=== PATIENT | female | born 1985 | race Caucasian/White ===

== ENCOUNTER 2021-11-06 07:52 | Outpatient (CLI) | payer OTHER, SELFPAY ==
--- NOTE | 2021-11-06 08:15 | CRLHL7_ITS ---
For Patients: As a result of the Cures Act, medical imaging exams and procedure reports are released immediately into your electronic medical record. You may view this report before your referring provider. If you have questions, please contact your health care provider. INDICATION: First trimester scan, establish dates. COMPARISON: None. TECHNIQUE: Real-time weber-scale imaging of the pelvis was performed. FINDINGS: Sonographic imaging demonstrates a single living intrauterine gestation. The embryo demonstrates a regular cardiac rate measuring 179 beats per minute. The embryo`s crown-rump length measurement of 2.7 cm corresponds to a gestational age of 9 weeks 3 days with a sonographic due date of 06/08/2022. There is a normal-appearing yolk sac. There are no gross abnormalities noted within the embryo at this early state of development. The gestational sac has a normal appearance. There is a 0.6 x 1.1 x 0.4 cm perigestational hemorrhage. The amount of fluid within the sac appears appropriate for gestational age. The cervix is closed. Anterior intramural fibroid measuring 1.5 x 1.1 x 1.4 cm. The left ovary is normal. The right ovary is not visualized. There are no suspicious fluid collections noted in the cul-de-sac. IMPRESSION: Single living intrauterine with sonographic gestational age 9 weeks 3 days and sonographic due date of 06/08/2022. Small left-sided subchorionic hemorrhage measuring 6 x 11 x 4 millimeters. Dictated by Gilson Arriola MD @ 11/06/2021 8:43:51 AM (Electronically Signed)
== END 2021-11-06 07:53 | disposition home or self-care (01) ==
LOC: US 07:55
PROVIDERS: Visit Provider Registered Nurse
DX: Z34.91 Encounter for supervision of normal pregnancy, unspecified, first trimester (principal); O20.9 Hemorrhage in early pregnancy, unspecified; Z3A.09 9 weeks gestation of pregnancy
CPT/HCPCS: 76817

== ENCOUNTER 2021-11-06 10:06 | Outpatient (CLI) | payer OTHER, SELFPAY ==
[2021-11-06 12:17] LABS: Alanine Aminotransferase* 23 U/L (4-35); Aspartate Amino Transferase* 40 U/L (12-35); Blood Urea Nitrogen* 10 mg/dL (5-24); Creatinine* 0.7 mg/dL (0.5-1.5); Estimated Glomerular Filt Rate 113 ml/min
[2021-11-06 12:41] LABS: Hepatitis B Surface Antigen* Negative (Negative)
[2021-11-06 12:46] LABS: Total Protein Urine < 5 mg/dL
[2021-11-06 12:50] LABS: Creatinine Urine 153.1 mg/dL; HIV 1/2/P24 Combo Screen* Negative (Negative)
[2021-11-06 12:58] LABS: Hepatitis C Virus Antibody* Negative (Negative)
[2021-11-07 17:34] LABS: Rubella Antibody IgG 9.9 IU/mL
[2021-11-08 00:37] LABS: Rapid Plasma Reagin (RPR) Non Reactive (Non Reactive)
== END 2021-11-06 10:07 | disposition home or self-care (01) ==
PROVIDERS: Visit Provider Registered Nurse
DX: O09.521 Supervision of elderly multigravida, first trimester (principal); Z3A.09 9 weeks gestation of pregnancy
CPT/HCPCS: 82565; 82570; 84156; 84450; 84460; 84520; 86592; 86703; 86762; 86803; 86850; 86900; 86901; 87086; 87186; 87340; 87491; 87591

== ENCOUNTER 2021-11-29 15:01 | Outpatient (CLI) | payer OTHER, SELFPAY ==
[2021-11-29 17:12] LABS: Aspartate Amino Transferase* 26 U/L (12-35)
== END 2021-11-29 15:02 | disposition home or self-care (01) ==
PROVIDERS: Visit Provider Advanced Practice Midwife
DX: O09.521 Supervision of elderly multigravida, first trimester (principal); Z3A.12 12 weeks gestation of pregnancy
CPT/HCPCS: 84450; 87086

== ENCOUNTER 2022-01-22 14:16 | Outpatient (CLI) | payer OTHER, SELFPAY | END 2022-01-22 14:17 | disposition home or self-care (01) | LOC: US 14:18 | PROVIDERS: Visit Provider Pediatrics Neonatal-Perinatal Medicine | DX: O09.522 Supervision of elderly multigravida, second trimester (principal); Z3A.20 20 weeks gestation of pregnancy | CPT/HCPCS: 76811 ==

== ENCOUNTER 2022-03-14 12:48 | Outpatient (CLI) | payer OTHER, SELFPAY ==
[2022-03-16 17:39] LABS: Rapid Plasma Reagin (RPR) Non Reactive (Non Reactive)
== END 2022-03-14 12:49 | disposition home or self-care (01) ==
LOC: NFLDREF 12:49
PROVIDERS: Visit Provider Advanced Practice Midwife
DX: Z34.90 Encounter for supervision of normal pregnancy, unspecified, unspecified trimester (principal)
CPT/HCPCS: 86592

== ENCOUNTER 2022-04-07 11:27 | Outpatient (CLI) | payer OTHER, SELFPAY ==
[2022-04-07 11:44] VITALS: PULSE 91; O2SAT 96
[2022-04-07 11:47] VITALS: TEMP 36.8
[2022-04-07 11:48] VITALS: BP 108/69; PULSE 86
--- NOTE | 2022-04-07 12:46 | P.OBLDTN_ITS ---
OB - Triage/Final Diagnosis Visit Information Time Seen by Provider: 12:47 Date Seen: 04/07/22 Date of evaluation: 04/07/22 Narrative: Nasra is a 37 year old 4 para 2 at 31 1/7 weeks gestation by 1st trimester ultrasound, who presents with contractions. 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 Contractions were painful enough she had to stop what she was doing and catch her breath. Nasra stated that she felt there was some decrease in movement as well. She stated that now she is feeling the contractions regularly, but only once in a while are they painful. Nasra is resting in bed, teary eyed. Pt presents from: Home, on her own, but she called her on the way here and she is in contact with him on the phone GA: 31w 1d C/o: contractions that continue despite rest, increased fluids or emptying her bladder movement: pt reports it feels somewhat decreased Ctx: pt reports she is feeling them like mariaa santiago, but occasionally there is a very painful one, or two. ROM: Denies Bleeding: Denies Discharge: Denies Current : OB Problem List: G4, P2012 (plus 2 chemical pregnancies) : Alfred, stationed at [facility] 1. Advanced maternal age MaterniT 21 test done today (11/29/2021). Level II: WNL, EFW 87% 2. Hypothyroidism Taking 125 mcg daily. Planning to have endocrinology manage. Last TSH was 0.82 on 11/05/21 per patient report. TSH 0.36 on 02/12/22?per pt report (next test 03/28/22) Managed with [facility], next due Mar 28 3. History of preeclampsia (no mag) Baseline preeclampsia labs drawn at 1st OB: BUN 10, creatinine 0.7, AST 40*, ALT 23 PC ratio 0.00 AST slightly elevated.? Consider repeating this at next OB visit. AST normal on repeat Continue daily baby aspirin. 4. Known intramural fibroid measuring 1.5 x 1.1 x 1.4 cm. Stable at 20 wk level II 5. Asymptomatic Bacteriuria at first OB. Treated w/ Macrobid BENJA at follow up: Mixed owen, no tx required 6. Rubella nonimmune. Will need vaccine. 7. Hx of precipitous 2nd delivery with IOL at 40.1 wks 8. Gestational diabetes: failed 20 wk 1 hr: 171. - Accepted GDM dx. History of gestational diabetes Hgb A1C: 5.4% Early GDM testing at 20 weeks: Failed 171; Declined to do 3 hr, preferred to accept diagnosis at this time and start testing. Testing supplies sent in, gas engine mechanic skipped at this time. Growth u/s @ 32 w: ordered IOL @ 39 0/7- 40 09/03 Flu: Covid: Tdap: 03/28/2022 Objective: Vital Signs Stable FHTs: Baseline: 145 Variability: Moderate Accels: Present Decels: occasional variable Reactive NST: Yes Ctx: 2-3 min SVE: deferred Labs: Ffn: Negative UA: Negative Wet Prep: Negative for yeast, trichomoniasis, and bacterial vaginosis Assessment: @ 31 1/ Week Irregular contractions Reactive NST Negative Ffn Plan: Consulted with Dr. Quach Discharge patient to home Encourage hydration and rest Pt to call or return to triage if more than 6 painful contractions in one hour Follow up at regularly scheduled visit. Reason for evaluation: decreased movement and threatened labor Evaluation Vital signs: Vital Signs - 24 hr 04/07/22 11:44 04/07/22 11:47 04/07/22 11:48 Temperature 98.2 F Pulse Rate 86 Blood Pressure 108/69 Pulse Oximetry 96 Final Diagnosis (1) contractions: Status: Acute
[2022-04-07 12:56] LABS: Clue Cells No Clue Cells Seen (None Seen); Trichomonas No Trichomonas Seen (None Seen); Yeast No Yeast Seen (None Seen)
[2022-04-07 13:14] LABS: Fetal Fibronectin* Negative (Negative)
[2022-04-07 13:37] LABS: Appearance Urine Clear (Clear); Bilirubin Urine Negative (Negative); Blood Urine 2+ (Negative); Color Urine Yellow (Yellow); Glucose Urine Negative (Negative); Ketones Urine 2+ (Negative); Leukocyte Esterase Urine Negative (Negative); Nitrite Urine Negative (Negative); Protein Urine Negative (Negative); Specific Gravity Urine 1.025 (1.000-1.030); Urobilinogen Urine 0.2 (0.2-1.0); pH Urine 5.5 (5.0-8.5)
[2022-04-07 13:52] LABS: WBC Urine 0-2 (0-5)
[2022-04-07 13:53] LABS: Squamous Epithelial Cell Urine Few (None-Few)
--- NOTE | 2022-04-07 14:41 | PC.OBNST ---
NST Note NST Note Start: 04/07/22 11:49 Freq: ONCE Status: Active Protocol: Document 04/07/22 14:39 SCIENTOLOGY (Rec: 04/07/22 14:40 SCIENTOLOGY [id number]) NST Note 4 Para (# of births) 2 EDC 06/08/22 Gestational Age In Weeks & Days 31 Weeks & 1 Days High Risk Factors Diabetes - Gestational Diet Controlled,Advanced Maternal Age Patient Presented with Complaint(s) of Contractions/cramping, Decreased movement Reactive Yes Appropriate for Gestational Age Yes VIKTORIYA Ariza Date 04/07/22 Reactive Yes Appropriate for Gestational Age Yes VIKTORIYA Nicholas Date 04/07/22 OB NST charge Yes Complete NST Note via Write Note Yes The provider's electronic signature indicates the NST is reactive/appropriate for gestational age. *Note to provider: If an addendum is required, open the patient's chart and click on the note under the Nurse/Allied Health tab.
== END 2022-04-07 14:20 | disposition home or self-care (01) ==
LOC: OB OUT 11:28 → OB 11:29
PROVIDERS: Advanced Practice Midwife; Obstetrics & Gynecology; Visit Provider Advanced Practice Midwife
DX: O24.419 Gestational diabetes mellitus in pregnancy, unspecified control (principal); Z3A.31 31 weeks gestation of pregnancy
CPT/HCPCS: 59025; 81003; 81015; 84112; 87086; 87186; 87210; 99213

== ENCOUNTER 2022-04-11 12:08 | Outpatient (CLI) | payer OTHER, SELFPAY ==
--- NOTE | 2022-04-11 12:15 | CRLHL7_ITS ---
For Patients: As a result of the Century Cures Act, medical imaging exams and procedure reports are released immediately into your electronic medical record. You may view this report before your referring provider. If you have questions, please contact your health care provider. INDICATION: GDM controlled by diet COMPARISON: 11/06/2021 TECHNIQUE: Real time weber scale imaging of the fetus was performed as well as color Doppler and spectral Doppler analysis of the umbilical artery. FINDINGS: Sonographic imaging demonstrates a single living intrauterine gestation. Fetus demonstrates a regular cardiac rate of 141 beats per minute. Fetus has a vertex position. The placenta lies posteriorly. Amniotic fluid volume appears normal and there is a single deepest vertical pocket: 6.1 cm. The estimated weight is 2040gm which lies at the 73rd %. BPD 47th percentile. HC 66th percentile. AC 85th percentile. FL 46th percentile. The HC/AC ratio measures 1.04 range (0.96-1.12). IMPRESSION: A sonographic gestational age 32 weeks 5 days and sonographic due date of 06/01/2022. Sonographic age is 7 days ahead of the clinical age. Estimated weight 73rd percentile. Abdominal circumference 85th percentile. Dictated by Gilson Arriola MD @ 04/11/2022 2:01:53 PM (Electronically Signed)
== END 2022-04-11 12:09 | disposition home or self-care (01) ==
LOC: US 12:10
PROVIDERS: Visit Provider Advanced Practice Midwife
DX: O24.410 Gestational diabetes mellitus in pregnancy, diet controlled (principal); Z3A.32 32 weeks gestation of pregnancy
CPT/HCPCS: 76816

== ENCOUNTER 2022-05-06 15:51 | Outpatient (CLI) | payer OTHER, SELFPAY ==
--- NOTE | 2022-05-06 16:00 | CRLHL7_ITS ---
For Patients: As a result of the Century Cures Act, medical imaging exams and procedure reports are released immediately into your electronic medical record. You may view this report before your referring provider. If you have questions, please contact your health care provider. INDICATION: + COVID in . GDM. 35w2d COMPARISON: 04/11/2022 TECHNIQUE: Real time weber scale imaging of the fetus was performed. FINDINGS: Sonographic imaging demonstrates a single living intrauterine gestation. Fetus demonstrates a regular cardiac rate of 134 beats per minute. Fetus has a vertex position. The placenta lies posteriorly. Amniotic fluid volume appears normal and there is a single deepest vertical pocket: 5.9 cm. The estimated weight is 2868gm which lies at the 73rd %. On the prior OB ultrasound exam dated 04/11/2022 the estimated weight was at the 73rd%. BPD 46th percentile. HC 31st percentile. AC 94th percentile. FL 32nd present. The HC/AC ratio measures 0.96 range (0.93-1.09). IMPRESSION: Sonographic gestational age 35 weeks 5 days and sonographic due date of 06/05/2022. Good correlation with dates. Normal interval growth. Estimated weight 73rd percentile. Abdominal circumference 94th percentile. Dictated by Gilson Arriola MD @ 05/07/2022 12:38:54 PM (Electronically Signed)
== END 2022-05-06 15:52 | disposition home or self-care (01) ==
LOC: US 15:51
PROVIDERS: Visit Provider Advanced Practice Midwife
DX: O24.410 Gestational diabetes mellitus in pregnancy, diet controlled (principal); O98.513 Other viral diseases complicating pregnancy, third trimester; U07.1 COVID-19; Z3A.35 35 weeks gestation of pregnancy
CPT/HCPCS: 76816

== ENCOUNTER 2022-05-06 16:58 | Outpatient (CLI) | payer OTHER, SELFPAY | END 2022-05-06 16:59 | disposition home or self-care (01) | LOC: NFLDREF 16:59 | PROVIDERS: Visit Provider Physician Assistant | DX: O98.513 Other viral diseases complicating pregnancy, third trimester (principal); U07.1 COVID-19; Z3A.35 35 weeks gestation of pregnancy | CPT/HCPCS: 87086 ==

== ENCOUNTER 2022-05-16 10:38 | Outpatient (CLI) | payer OTHER, SELFPAY ==
[2022-05-17 14:27] LABS: Strep B DNA Probe NEGATIVE (Negative)
[2022-05-18 03:50] LABS: Strep B Pen/Amox Allergy No
== END 2022-05-16 10:39 | disposition home or self-care (01) ==
LOC: NFLDREF 10:38
PROVIDERS: Visit Provider Advanced Practice Midwife
DX: Z34.93 Encounter for supervision of normal pregnancy, unspecified, third trimester (principal); Z3A.36 36 weeks gestation of pregnancy
CPT/HCPCS: 87081; 87653

== ENCOUNTER 2022-06-06 10:34 | Outpatient (CLI) | payer OTHER, SELFPAY | END 2022-06-06 10:35 | disposition home or self-care (01) | PROVIDERS: Visit Provider Advanced Practice Midwife | DX: O09.523 Supervision of elderly multigravida, third trimester (principal); Z3A.39 39 weeks gestation of pregnancy | CPT/HCPCS: 82565; 82570; 84156; 84450; 84460; 84520 ==

== ENCOUNTER 2022-06-06 18:10 | Inpatient (IN) | payer OTHER, SELFPAY ==
[2022-06-06] VITALS (13 sets, daily range): BP systolic 117–149; BP diastolic 67–86; PULSE 83–115; RESP 16
[2022-06-06] MEDS: OXYTOCIN 10 UNIT/ML INJ IM (19:28)
--- NOTE | 2022-06-06 20:00 | W.PM.OBVAGDE ---
OB Procedure Vag Delivery Mother Details Mother Details: The patient is a 37 year-old, 4, Para 2, admitted on 06/06/22 at 39.5 weeks gestation for active labor. Supported by significant other, 6cm with bulging bag. Labored in the tub until her water broke, noted meconium stained fluid at that time. Walked back to bed and delivered infant. : 4 Para: 3 Weeks Gestation: 39.5 Admission Date: 06/06/22 Additional Details Amniotic Membrane Status: SROM Amniotic Membrane Rupture Date: 06/06/22 Amniotic Membrane Rupture Time: 19:15 Amniotic Membrane Fluid Description: Meconium Stained Analgesia/Anesthesia Type: None Waterbirth: No Pitcoin: Yes (AMTSL, IM) Intrapartal Events: Precipitous Labor <3 Hrs Labor Onset: 16:30 Complete: 19:15 Pushin:15 Heart: heart tones during second stage were 130, moderate variability, no accels, no decels. Delivery Details Delivery Date: 06/06/22 Delivery Time: 19:22 Route of delivery: Gender: Female Infant Viability: Alive; Heart Rate Present Position at Delivery: OA Delivery Details: Delivered over intact perineum via spontaneous vaginal delivery. Infant was placed on maternal abdomen.? Cord was clamped and cut after a 2-3 minute delay. Nose and mouth were bulb suctioned.? weight pending. 1 Minute Interval Total Score: 8 5 Minute Interval Total Score: 9 Additional Details Shoulder Dystocia: No Placenta Delivery Time: 19:27 Placental Delivery Description: Spontaneous Procedure Done: Global Blood Loss: 50 Laceration: None Blood Loss Measurement Type: QBL Bakri Used: No Sponge/Need Count Correct: Yes Cord Vessel Description: 3 Vessels, Loose and Around Body Event Summary Status: Mother and infant were stable after delivery.
--- NOTE | 2022-06-06 20:30 | W.PM.LDBA ---
Subjective History of Present Illness Date Seen: 06/06/22 Narrative: Late entry admit note due to precipitous labor and delivery. Patient is being admitted to Labor and Delivery for active labor. She is a 37 year old at weeks gestation. Her full history and physical was dictated by Leonardo Rosales CNM on 05/28/22. Please see this for details. 1. Advanced maternal age MaterniT 21 test done today (11/29/2021). Level II:? WNL, EFW 87% 2. Hypothyroidism Taking 125 mcg daily.? Planning to have endocrinology manage.? Last TSH was? 0.82 on 11/05/21 per patient report. TSH 0.36 on 02/12/22?per pt report? Managed with [facility], continues to see next 05/09 05/22 TSH was 0.62 total 12.1 3. History of preeclampsia (no mag) Baseline preeclampsia labs drawn at 1st OB: BUN 10, creatinine 0.7, AST 40*, ALT 23 PC ratio 0.00 AST slightly elevated.? Consider repeating this at next OB visit. AST normal on repeat Continue daily baby aspirin. 4. Known intramural fibroid measuring 1.5 x 1.1 x 1.4 cm.? Stable at 20 wk level II 5. Asymptomatic Bacteriuria at first OB. Treated w/ Macrobid BENJA at follow up: Mixed owen, no tx required 6. Rubella nonimmune.? Will need vaccine.? 7.? Hx of precipitous 2nd delivery with IOL at 40.1 wks. 1hr from start of IOL to delivery. 8.? Gestational diabetes: failed 20 wk 1 hr: 171.? -?Accepted GDM dx. History of gestational diabetes Hgb A1C: 5.4% Early GDM testing at 20 weeks: Failed 171; Declined to do 3 hr, preferred to accept diagnosis at this time and start testing.? Testing supplies sent in, crack off person skipped at this time, completed at endo request.? Growth u/s @ 32 w: 73%ile IOL @ 39 0/7- 40 6/7? pt declines prefers to await spontaneous labor; may consider surveillance at term. 9. E. Coli UTI, symptomatic. Treated 04/10/2021 w/ Macrobid 100 mg BIDx7 Urine culture 05/06/2022:?negative 10. Covid + 04/18/22 growth at 36 weeks: vertex, SDP 5.9cm, EFW 73%, BPD 46%, HC 31%, AC 94%, FL 32% OB - Problem Based A/P Additional Plan (1) : Status: Acute (2) Gestational diabetes, diet controlled: Status: Acute (3) Multigravida of advanced maternal age: Status: Acute (4) Hypothyroidism: Problem details: Managed by Endocrine Status: Acute Plan ASSESSMENT:? at 39.5 weeks gestation? GBS negative? GDM diet controlled Hypothyroidism AMA? ? PLAN:? 1. Desires water . Consent signed. Hep C negative.?Water room occupied. 2. Candidate for analgesia of choice. Planning unmedicated .? 3. Anticipate ? 4. Expectant management at this time.? 5. IV not needed at this time. Consider placement if condition changes per unit policy. 6. Continuous monitoring per unit policy for GDM.? Delivery/Labor/Induction Plan Plan: expectant management OB Result Labs Blood Type: A (+) positive GBS Status: negative OB Exam Physical Exam Vital signs: Pulse BP 115 H 121/71 06/06/22 20:29 06/06/22 20:29 Narrative: Vitals per EMR? Psychiatric:? Alert and oriented x3? HEENT:? Normocephalic, atraumatic? Neck:? Supple without adenopathy or thyromegaly? Lungs:? Clear to auscultation bilaterally? Heart:? Regular rate and rhythm, no murmur, rub or gallop? Abdomen:? Soft, nontender, and gravid? Extremities:? No edema or erythema? Pelvic:? SVE: 6-7cm/100%/-1 per RN exam? Membrane status:? intact? presentation:? vertex? FHT:? Minimal to Moderate Variability.? Positive Accels but only occasional.? No Decels. Baseline 145.? [place]:? Ctx Q2-3min? Detailed Labor and Delivery Exam Patient Gravid: Yes Tachysystole: No Contraction intensity: Strong/Firm Fetus (Single) Amniotic Membrane Status: intact Heart Rate Baseline: 145 Monitor Accelerations: Present Monitor Decelerations: None Field Operations Technician Variability: Moderate (6-25)
[2022-06-06] MEDS: IBUPROFEN 600 MG TABLET PO (21:28)
[2022-06-06 23:07] LABS: SARS PCR* Negative SARS-CoV-2 (Negative)
[2022-06-07] MEDS: IBUPROFEN 600 MG TABLET PO ×2 (04:42→19:27)
[2022-06-07 06:49] VITALS: BP 113/79; PULSE 89; RESP 16
[2022-06-07 10:30] VITALS: BP 112/79; PULSE 104; RESP 16; TEMP 36.8; O2SAT 97
[2022-06-07] MEDS: DOCUSATE SODIUM 100 MG CAPSULE PO (10:34)
[2022-06-07] MEDS: LEVOTHYROXINE 125 MCG TABLET PO (10:34)
[2022-06-07 13:59] VITALS: BP 123/77; PULSE 95; RESP 16; TEMP 36.8; O2SAT 97
[2022-06-07] MEDS: ACETAMINOPHEN 500 MG TABLET 1000 MG PO (14:10)
[2022-06-07 16:20] VITALS: BP 115/64; PULSE 89; RESP 16; TEMP 36.8; O2SAT 97
--- NOTE | 2022-06-07 16:40 | PM.OBPNVD1 ---
OB - PN:Subj Subjective Date Seen: 06/07/22 Interval history: The patient feels well.? The pain is well controlled with current medications.? She has no new complaints.? Urinary output is adequate and she is voiding without difficulty.? Has a good appetite, is tolerating a general diet, is passing flatus, and has not yet had a bowel movement.? Has small amount of rubra lochia.? She is ambulating well.? Patient comments OB post-: no complaints and pain well controlled status: and doing well feeding status: exclusively OB - PN: Obj Exam Physical Exam: Vital signs: Temp Pulse Resp BP Pulse Ox O2 Del Method 98.3 F 89 16 115/64 97 06/07/22 16:20 06/07/22 16:20 06/07/22 16:20 06/07/22 16:20 06/07/22 16:20 06/07/22 16:20 Narrative: GENERAL APPEARANCE:? normal affect, alert, no distress? MOOD:? appropriate? CHEST:? clear to auscultation and percussion? HEART:? regular rate and rhythm? ABDOMEN:? soft, non-tender the uterine fundus is At the Umbilicus and is appropriate for the stage of recovery.? PERINEUM:? mild edema of the perineum, there is not a tear.? EXTREMITIES:? normal and no edema? OB - PN: Obj Data Labs Labs: Laboratory Results - last 24 hr 06/06/22 19:32 SARS-CoV-2 (PCR) Negative SARS-CoV-2 OB - PN: A/P Vaginal Delivery Assessment and Plan (1) : Status: Acute (2) Gestational diabetes, diet controlled: Status: Acute (3) Multigravida of advanced maternal age: Status: Acute (4) Hypothyroidism: Problem details: Managed by Endocrine Status: Acute Plan 37 year old on day 1.? 1. cares.? 2. Anticipate discharge tomorrow.? Plan day: 1 Plan: routine care
[2022-06-08 06:15] VITALS: BP 124/83; PULSE 95; RESP 16; TEMP 36.8; O2SAT 97
[2022-06-08] MEDS: IBUPROFEN 600 MG TABLET PO (06:26)
--- NOTE | 2022-06-08 08:22 | P.DS_ITS ---
DS: Providers Provider Date Seen: 06/08/22 Date of admission: 06/06/22 18:10 Primary care physician: Not a Local Provider Admitting Clinician: Dianna Nye CNM Attending Physician on discharge: Elizabeth Mazariegos CNM with [facility] Date of Discharge: 06/08/22 DS: Diagnosis Discharge Diagnosis (1) care and examination immediately after delivery: Status: Acute (2) Lactating mother: Status: Acute (3) Gestational diabetes, diet controlled: Status: Acute Problem details: Needs 2 hour gct at 6 weeks Exam Narrative: Exam Narrative: GENERAL APPEARANCE:? normal affect, alert, no distress? MOOD:? appropriate? CHEST:? clear to auscultation? HEART:? regular rate and rhythm? ABDOMEN:? soft, non-tender the uterine fundus is firm At Umbilicus, Midline and is appropriate for the stage of recovery.? PERINEUM:? mild edema of the perineum, there is not a Perineal Laceration. EXTREMITIES:? normal and no edema? Const: Vital Signs, click to edit/add: Vital Signs - 24 hr 06/07/22 10:30 06/07/22 13:59 06/07/22 16:20 Temperature 98.2 F 98.2 F 98.3 F Pulse Rate [Pulse Oximeter] 104 H 95 89 Respiratory Rate 16 16 16 Blood Pressure [Le ft Arm] 112/79 123/77 115/64 Pulse Oximetry 97 97 97 Oxygen Delivery Me thod Room Air Room Air 06/08/22 06:15 Temperature 98.3 F Pulse Rate [Pulse Oximeter] 95 Respiratory Rate 16 Blood Pressure [Le ft Arm] 124/83 Pulse Oximetry 97 Oxygen Delivery Me thod Room Air Documenting provider has reviewed patient's vital signs: yes Common normals: no apparent distress, oriented x3 and healthy appearing HENMT: Common normals: normocephalic Head and scalp: normocephalic Eye: Common normals: PERRL Pupil: PERRL Neck & C-Spine: Common normals: full ROM Lymph: Lymphatic: no lymphadenopathy noted Chest: Common normals: inspection of chest normal Resp: Common normals: normal respiratory effort and clear to auscultation bilaterally Auscultation: clear to auscultation bilaterally Cardio: Common normals: regular rate and regular rhythm Rate: regular rate Rhythm: regular rhythm GI: Common normals: Normal to inspection, nondistended, normoactive bowel sounds present, soft to palpation and non-tender Palpation: soft : Uterus: U/U and firm Lochia: small Back & Pelvis: Common normals: thoraco-lumbar ROM normal Extremity: Common normals: full ROM Neuro: Common normals: oriented x3 Psych: Common normals: mental status grossly normal Skin: Common normals: no rashes or lesions noted General skin exam: no rashes or lesions noted OB - DS: Summary Hospital Course Hospital Course: Nasra is a 37 year old G 4 now P 3 at 40.0 weeks gestation that was admitted to the Center on 06/06/22 for labor. She had an uncomplicated vaginal delivery. She delivered a viable female infant. the patient has done well. The patient feels well.?The pain is well controlled with current medications. She has no new complaints.? Urinary output is adequate and she is voiding without difficulty. Has a good appetite, is tolerating a general diet, is passing flatus, and has not yet had a bowel movement.? Has small amount of rubra lochia.?She is ambulating well. She is and reports it is going well. She does desire to continue to work on her skills. Peripartum Data delivery method: Vaginal Laceration description: None complications: none [place] Gender: Female Discharge Plan: Home Status at Discharge Functional status at discharge: independent ambulation Overall status at discharge: patient is progressing back to baseline Time Spent with Patient Time attestation: Total time spent providing and/or coordinating discharge services: Time spent: Less than 30 minutes Discharge Plan Discharge Disposition: Home, Self-Care Date of Admission: 06/06/22 18:10 Attending Provider on Discharge: Elizabeth Mazariegos Primary Care Provider: Provider,Not a Local Condition: Stable Anticipated Discharge Date/Time: 06/08/22 12:00 Discharge Medications: New acetaminophen 500 mg Tablet 1,000 mg PO Q6H PRN (Reason: pain/fever) Qty: 0 0RF levothyroxine 100 mcg Tablet 100 mcg PO 0600 Qty: 0 0RF ibuprofen 600 mg Tablet 600 mg PO Q6H PRNQty: 60 0RF Continued DHA 200 mg capsule 200 mg PO DAILY PRN (DME) breast pump Device See Rx Instructions .Route Qty: 1 0RF Hold Instructions: Doctor's Order Rx Instructions: As directed Discontinued levothyroxine 125 mcg capsule 125 mcg PO QDAY (DME) Blood Glucose Meter Misc See Rx Instructions .MEDSUPPLY Qty: 1 0RF Rx Instructions: one glucometer QID testing (DME) lancets Mis See Rx Instructions .MEDSUPPLY Qty: 100 5RF Rx Instructions: Test blood sugar 4 times daily. (DME) Test Strips Misc See Rx Instructions .MEDSUPPLY Qty: 100 5RF Rx Instructions: Test blood sugar 4 times daily. Discharge Orders: Discharge Order (Routine); Ordered 06/08/22 Ordered By: Elizabeth Mazariegos Additional Instructions: Discharge instructions were reviewed with the patient including signs and symptoms of infection and home going medications. Off Work or School for 6 weeks. Follow Up with [facility] in 2 and 6 weeks at [facility] clinic. consultation services are available to all mothers and babies for the first year after delivery.? To make an appointment, please call [phone]. Activity Level: Activity as Tolerated Discharge Diet: Regular Follow Up Appointments: [facility] [Provider Group] Forms: [employer] Info Instructions
[2022-06-08 08:30] VITALS: BP 116/79; PULSE 85; RESP 16; TEMP 36.8; O2SAT 97
[2022-06-08] MEDS: LEVOTHYROXINE 100 MCG TABLET PO (08:30)
[2022-06-08] MEDS: ACETAMINOPHEN 500 MG TABLET 1000 MG PO (08:30)
[2022-06-08] MEDS: DOCUSATE SODIUM 100 MG CAPSULE PO (08:30)
[2022-06-08] MEDS: MEASLES,MUMPS,RUBELLA VACC/PF 1 DOSE INJ 1 EACH SUBCUT (10:44)
== END 2022-06-08 11:24 | disposition home or self-care (01) | DRG 807 ==
LOC: OB OUT 18:12 → OB 18:12
PROVIDERS: Admitting Provider Advanced Practice Midwife; Visit Provider Advanced Practice Midwife
DX: O24.420 Gestational diabetes mellitus in childbirth, diet controlled (principal); Z37.0 Single live birth; E03.9 Hypothyroidism, unspecified; Z3A.39 39 weeks gestation of pregnancy; O99.284 Endocrine, nutritional and metabolic diseases complicating childbirth
CPT/HCPCS: 87635; A9270; J2590

== ENCOUNTER 2022-07-28 08:44 | Outpatient (CLI) | payer OTHER, SELFPAY | END 2022-07-28 08:45 | disposition home or self-care (01) | LOC: NFLDREF 07-29 08:36 | PROVIDERS: Visit Provider Advanced Practice Midwife | DX: Z86.32 Personal history of gestational diabetes (principal) | CPT/HCPCS: 82947; 82950 ==

== ENCOUNTER 2022-10-17 15:30 | Outpatient (RCR) | payer OTHER, SELFPAY | END 2023-02-14 23:59 | disposition home or self-care (01) | PROVIDERS: Visit Provider Advanced Practice Midwife | DX: N81.89 Other female genital prolapse (principal); Z51.89 Encounter for other specified aftercare | CPT/HCPCS: 97110; 97140; 97162; 97535 ==

== ENCOUNTER 2023-07-15 15:29 | Outpatient (CLI) | payer OTHER, SELFPAY | END 2023-07-15 15:30 | disposition home or self-care (01) | LOC: FRMREF 15:30 | PROVIDERS: Visit Provider Advanced Practice Midwife | DX: R10.32 Left lower quadrant pain (principal) | CPT/HCPCS: 84702 ==

== ENCOUNTER 2024-02-12 10:07 | Outpatient (CLI) | payer OTHER, SELFPAY | END 2024-02-12 10:08 | disposition home or self-care (01) | PROVIDERS: Visit Provider Obstetrics & Gynecology | DX: N91.1 Secondary amenorrhea (principal) | CPT/HCPCS: 84702 ==

== ENCOUNTER 2024-02-17 10:04 | Outpatient (CLI) | payer OTHER, SELFPAY ==
--- OUTSIDE RECORDS SUMMARY | 2024-02-17 10:06 | XMS_ITS | Encounter Summary ---
Author Organization [facility]ly [facility] Address [address], [place] [address] Care Team Providers Care Machine Carton Marker Name Role Phone James Hughes MD Primary Care Provider [phone] Reason for Referral * Procedure/Equipment (Routine) - Incomplete Specialty Diagnoses / Procedures Referred By Contac t Referred To Contact Diagnoses Vertigo Procedures [place] [address] [place] [address] Referral ID Status Reason Start Date Expiration Date V isits Requested Visits Authorized [id number] Incomplete 02/10/2024 05/11/2025 1 1 ER WASHER * Consult/Transfer Care (Routine) - Authorized Specialty Diagnoses / Procedures Referred By Contac t Referred To Contact Diagnoses Perimenopause [place] [address] [place] [address] Referral ID Status Reason Start Date Expiration Date V isits Requested Visits Authorized [id number] Authorized 02/10/2024 08/08/2024 1 1 Scheduling Instructions This order is your clinician's recommendation for a service and is not an insurance referral which authorizes payment. The recommended service and/or location may not be covered by your insurance plan. Please call the number on your insurance card to find out your specific benefits and coverage for the recommended services and/or location. If you need help scheduling the recommended services, please ask your clinician's staff to assist you. Question Answer Appointment Urgency? Non-Urgent Reason for Visit? - trying for around perimenopause Comments ER WASHER Reason for Visit * Reason Comments PRE-OP EXAM DOS 02/18/24; [facility] ; ANKLE ARTHROSCOPY WITH DEBRIDEMENT; BROSTROM LIGAMENT REPAIR Encounter Details Date Type Department Care Team (Late st Contact Info) Description 02/10/2024 11:30 AM BOILER WASHER Pre-Op Visit [facility] Medicine [address] [place] [address] [id number] James Hughes MD [address] [place] [address] [address] [place] [id number] Preop examination (Primary Dx); Chronic pain of right ankle; Perimenopause; Pre-conception counseling; Vertigo Social History Tobacco Use Types Packs/Day Years Used Date Smoking Tobacco: Never Passive Smoke Exposure: Never Smokeless Tobacco: Never Alcohol Use Standard Drinks/Week Comments Yes 0 (1 standard drink = 0.6 oz pur e alcohol) PHQ-2 Answer Date Recorded PHQ-2 Score 0 12/23/2023 Hunger Vital Sign Answer Date Recorded Within the past 12 months, y ou worried that your food would run out before you got the money to buy more. Never true 12/23/19 24 Within the past 12 months, t he food you bought just didn't last and you didn't have money to get more. Never true 12/23/2023 PRAPARE - Transportation Answer Date Re corded In the past 12 months, has l ack of transportation kept you from medical appointments or from getting medications? No 11/29 In the past 12 months, has l ack of transportation kept you from meetings, work, or from getting things needed for daily living? No 12/23/2023 Housing Stability Vital Sign Answer Jameel e Recorded In the last 12 months, was t here a time when you were not able to pay the mortgage or rent on time? No 12/23/2023 In the past 12 months, how m any times have you moved where you were living? 0 12/23/2023 At any time in the past 12 m [facility], were you homeless or living in a detention (including now)? No 12/23/2023 Financial Resource Strain Answer Date R ecorded Is it hard for you to pay fo r the very basics like food, housing, medical care or heating? No 12/07/2022 Food Insecurity Answer Date Recorded Does your food run out before you have the money to buy more? No 12/07/2022 Transportation Needs Answer Date Record ed Does a lack of transportatio n keep you from your medical appointments or from getting your medications? No 023 Depression Answer Date Recor ded Last EPDS Total Score 0 12/09/2022 Last EPDS Self Harm Result 0-->never 12/09 Sex and Gender Information Value Date Recorded Sex Assigned at Not on file Gender Identity Not on file Sexual Orientation Not on file documented as of this encounter Last Filed Vital Signs Vital Sign Reading Time Taken Comments Blood Pressure 124/89 02/10/2024 11:02 AM BOILER WASHER Pulse 81 02/10/2024 11:02 AM BOILER WASHER Temperature 36.7 C (98 F) 02/10/2024 11:02 AM BOILER WASHER Respiratory Rate - - Oxygen Saturation - - Inhaled Oxygen Concentration - - Weight 80.1 kg (176 lb 8 oz) 02/10/2024 11:02 AM BOILER WASHER Height 163.6 cm (5' 4.41) 02/10/2024 11:[address] Body Mass Index 29.91 02/10/2024 11:02 AM BOILER WASHER documented in this encounter Patient Instructions * Patient Instructions* James Hughes MD - 02/10/2024 11:30 AM BOILER WASHER Follow your individualized medication recommendations as described above. In addition, please stop all aaul-oph-dlnjwvx medications including aspirin, ibuprofen (Advil, Motrin), naproxen (Aleve, Naprosyn), herbal remedies and supplements one week prior to procedure unless directed otherwise by your care team. You may continue to take acetaminophen (Tylenol) up to the dayof your procedure. Continue all other medications as currently taking. Let your care team know if you have questions. On the day of your procedure, do not wear any hair product including hair sprays and gels and avoidusing body sprays and deodorants/antiperspirants. Bring with you to the site of the procedure: Any oral appliances or CPAP equipment related to sleep apnea Any other health-related equipment or devices you use daily Your clinician has recommended an appointment with [facility] Therapy [facility] Rehabilitation Services. You can quickly make your appointment online at [email or web address]. You can also call [phone] for help scheduling your appointment. We suggest you call your health insurance company about your coverage and benefits for this appointment. ER WASHER documented in this encounter Progress Notes * James Hughes MD - 02/10/2024 11:30 AM CST Pre-Operative Assessment 02/10/2024 ET Amb PreOp Assessment Details Procedure ANKLE ARTHROSCOPY WITH DEBRIDEMENT; BROSTROM LIGAMENT REPAIR Location [facility] Ambulatory Surgery Procedure Date 02/18/2024 Jen Hammonds is a 39 y.o. old female here for pre-operative evaluation for procedure noted above. Patient still having vertigo. Hasn't met with vestibular rehab. Also worried about going through menopause as she is hoping for another child. Would like to meet with FEATHER MAKER. 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 No pertinent past medical history. History reviewed. No pertinent surgical history. Current Outpatient Medications Medication Instructions levothyroxine (SYNTHROID) 88 MCG tablet Take 1 tablet daily 1 hour before or 2 hours after a meal; add 1/2 tablet every Thursday to usual dose. Vit-Fe Fumarate-FA (/FOLIC ACID) 1 Tablet, Oral, DAILY Allergies Allergen Reactions Sulfa Antibiotics Gastrointestinal Vomiting Social History Occupational History Not on file Tobacco Use Smoking status: Never Passive exposure: Never Smokeless tobacco: Never Vaping Use Vaping status: Never Used Substance and Sexual Activity Alcohol use: Yes Alcohol/week: 0.0 - 1.0 standard drinks of alcohol Types: 2 Glasses of wine per week Drug use: Never Sexual activity: Yes Partners: Male control/protection: Condom No LMP recorded. (Menstrual status: ). History reviewed. No pertinent family history. Review of Systems: 02/10/2024 ET Amb PreOp Assessment Sx Have you had a heart attack in the last 30 days? No Have you experienced chest tightening or chest pressure with activity? No Do you wake at night with difficulty breathing? No Do you have swelling in your feet or ankles? No Do you get short of breath if lying flat at night? No Do you hear wheezing or whistling when you breathe? No Have you had a cough, runny nose, or cold symptoms in the last 2 weeks? Yes Have you tested positive for Covid in the last 6 months? No Do you have a long-standing cough? No Do you snore or are you sleepy during the day? No Do you have any symptoms due to a recent concussion? No Do you or close relatives have bleeding or clotting problems? No Have you taken Aspirin, Ibuprofen (Advil) or Naproxen (Aleve) in the last 7 days? No Do you or close relatives have a history of a severe or life-threatening reaction to anesthesia? No Estimated Functional Capacity: Can you climb one flight of stairs, or walk up a gradual uphill without stopping? yes, functional capacity is more than or equal to 4 METS Objective BP 124/89 (BP Location: Right Arm, BP Cuff Size: Regular) Pulse 81 Temp 98 ??F (36.7 ??C) (Oral) Ht 5' 4.41 (1.636 m) Wt 176 lb 8 oz (80.1 kg) BMI 29.91 kg/m?? Physical Exam: General Appearance: alert, well appearing, and in no apparent distress Eyes: lids normal, sclera clear, and conjunctiva normal ENT: oropharynx clear Neck: no lymphadenopathy and no thyromegaly or nodules Heart: regular rate and rhythm and no murmurs, gallops or rubs Lungs: clear to auscultation and no wheezes, rales or rhonchi Abdomen: soft, nondistended, nontender, no palpable masses, and no organomegaly Extremities: no edema Skin: no rashes or worrisome lesions Neurologic: normal speech and no facial droop Data: Labs: Yes: Sodium Date Value Ref Range Status 12/23/2023 140 136 - 145 mmol/L Final Potassium Date Value Ref Range Status 12/23/2023 3.9 3.5 - 5.1 mmol/L Final Creatinine Date Value Ref Range Status 12/23/2023 0.80 0.55 - 1.02 mg/dL Final Hemoglobin Date Value Ref Range Status 12/23/2023 14.0 12.0 - 15.5 g/dL Final Hemoglobin A1C Date Value Ref Range Status 12/08/2022 5.4 <=5.6 % Final Glucose Date Value Ref Range Status 12/23/2023 79 70 - 100 mg/dL Final Comment: The given reference range is for the fasting state. Non-fasting reference range for glucose is 70 -180 mg/dL. ECG: Not indicated for this procedure. Assessment/Plan Patient is medically optimized for planned procedure(s). ICD-10-CM 1. Preop examination Z01.818 2. Chronic pain of right ankle M25.571 G89.29 3. Perimenopause N95.1 Ob-Special Education Supervisor Consult 4. Pre-conception counseling Z31.69 Ob-Special Education Supervisor Consult 5. Vertigo R42 MR Brain WO IV Cont Special risks: None Medication recommendations: Patient Instructions Follow your individualized medication recommendations as described above. In addition, please stop all xapv-elo-hwbawaj medications including aspirin, ibuprofen (Advil, Motrin), naproxen (Aleve, Naprosyn), herbal remedies and supplements one week prior to procedure unless directed otherwise by your care team. You may continue to take acetaminophen (Tylenol) up to the dayof your procedure. Continue all other medications as currently taking. Let your care team know if you have questions. On the day of your procedure, do not wear any hair product including hair sprays and gels and avoidusing body sprays and deodorants/antiperspirants. Bring with you to the site of the procedure: Any oral appliances or CPAP equipment related to sleep apnea Any other health-related equipment or devices you use daily Your clinician has recommended an appointment with Physical Therapy and Rehabilitation Services. You can quickly make your appointment online at [email or web address]. You can also call [phone] for help scheduling your appointment. We suggest you call your health insurance company about your coverage and benefits for this appointment. Electronically signed by: James Hughes MD 02/10/2024, 8:55 PM ER WASHER documented in this encounter Plan of Treatment Upcoming Encounters Date Type Department Care Team (Latest Contact Info) Description 02/18/2024 7:25 AM BOILER WASHER Hospital Encounter [facility] [address] [place] [phone] Yoav Lewis MD [address] [address] [place] [id number] 02/18/2024 7:25 AM BOILER WASHER - 02/18/2024 9:35 AM BOILER WASHER Surgery [facility] [address] [place] [phone] Yoav Lewis MD [address] [facility] [address] [place] [id number] ANKLE ARTHROSCOPY WITH DEBRIDEMENT; BROSTROM LIGAMENT REPAIR 02/18/2024 7:40 AM BOILER WASHER Appointment [facility] [place] [address] [facility] [address] [place] [phone] Yoav Lewis MD [address] [facility] [address] [place], [place] [address] 03/07/2024 8:00 AM BOILER WASHER Appointment [facility] [address] [place] [phone] Yoav Lewis MD [address] [facility] [address] [place] [id number] 04/01/2024 10:40 AM BOILER WASHER Appointment [facility] [address] [place] [phone] Yoav Lewis MD [address] [facility] [address] [place] [id number] Scheduled Orders Name Type Priority Associated Diagnoses Orde r Schedule MR Brain WO IV Cont Imaging New Routine Vertigo Expected: 02/10/2024 (Approximate), Expires: 02/09/2025 Scheduled Procedures Name Priority Associated Diagnoses Date/Ti me ARTHROSCOPY ANKLE Right ankle instability 02/18/2024 7:25 AM BOILER WASHER BROSTROM PROCEDURE Right ankle instability 02/18/2024 7:25 AM BOILER WASHER Scheduled Referrals Name Type Priority Associated Diagnoses Orde r Schedule Ob-Special Education Supervisor Consult Referral Routine Perimenopause Pre-conception counseling Ordered: 02/10/2024 documented as of this encounter Visit Diagnoses Diagnosis Right ankle instability- Primary Other joint derangement, not elsewhere classified, ankle and foot Preop examination- Primary Preoperative examination, unspecified Chronic pain of right ankle Perimenopause Symptomatic menopausal or female climacteric states Pre-conception counseling Other procreative management counseling and advice Vertigo Dizziness and giddiness Right ankle instability Other joint derangement, not elsewhere classified, ankle and foot documented in this encounter Care Teams Machine Carton Marker Relationship Specialty [place] [address] [place] [address] PCP - General Family Practice 11/04/21 documented as of this encounter
--- OUTSIDE RECORDS SUMMARY | 2024-02-17 10:06 | XMS_ITS | Clinical Summary ---
[facility] Organization [facility] Address [address] [place] [address] Care Team Providers Care Hat Finisher Name Role Phone James Hughes MD Primary Care Provider [phone] Source Comments You are receiving this document as you are listed as the primary care provider,follow-up provider, or the patient has been referred to you for consultation.This is in compliance with the Medicare and[facility] EHR Incentive Program,which states Providers who transition their patient to another setting of careor provider of care or refers their patient to another provider of care shouldprovide summary care record for each transition of care or referral. [facility] Allergies Active Allergy Reactions Criticality Noted Date Comments Sulfa Antibiotics Gastrointestinal High 11/04/2021 Vomiting Medications Medication Sig Dispensed Refills Start Date End Date Status Vit-Fe Fumarate-FA (/FOLIC ACID) Take 1 Tablet by mouth daily. Active levothyroxine (SYNTHROID) 88 MCG tabletIndications:Hyp othyroidism (acquired) (HR) Take 1 tablet daily 1 hour before or 2 hours after a meal; add 1/2 tablet every Thursday to usual dose. 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 Medicine [address] [place] [address] Yoav Lewis MD Surgery, To Schedule 01/04/2024 11:25 AM CDT Ancillary Procedure [facility] [address] [address] [address] [place] [address] Yoav Lewis MD Right foot pain 01/04/2024 11:20 AM CDT Office Visit [facility] [address] [place] [address] Yoav Lewis MD Right ankle instability (Primary Dx) 12/23/2023 1:20 PM CDT Lab Visit [facility] [address] [place] [address] Hypothyroidism (acquired) (HRC); Well adult exam; Screening cholesterol level 12/23/2023 12:00 PM CDT Office Visit [facility] [address] [place] [address] James Hughes MD Well adult exam (Primary Dx); Hypothyroidism (acquired) (HRC); Screening cholesterol level; Hx of sprain of ankle from Last 3 Months Immunizations Name Administration Dates Next Due Influenza (Flucelvax), Preserv Free QIV 01/17/20 23 Influenza IIV4 (Quadrivalent) 0.5mL (20881) 01/28 Influenza ccIIV3 6 months+ (Flucelvax) 4 MMR 06/08/2022 Moderna Monovalent 12+ 08/01/2020,07/04/2020 Pfizer COVID-19 12+ 12/23/2023,01/16/2023 Pfizer Monovalent 12+ Purple Top 02/25/2021 Tdap 03/28/2022 Social History Tobacco Use Types Packs/Day Years Used Date Smoking Tobacco: Never Passive Smoke Exposure: Never Smokeless Tobacco: Never Tobacco Cessation:Counseling Given: Not Answered Alcohol Use Standard Drinks/Week Comments Yes 0 [...] any time in the past 12 m [facility], were you homeless or living in a group home (including now)? No 12/23/2023 Financial Resource Strain [...] on file Sexual Orientation Not on file Last Filed Vital Signs Vital Sign Reading Time Taken Comments Blood Pressure 124/89 02/10/2024 11:02 AM PRICING ASSOCIATE Pulse 81 02/10/2024 11:02 AM PRICING ASSOCIATE Temperature 36.7 C (98 F) 02/10/2024 11:02 AM PRICING ASSOCIATE Respiratory Rate - - Oxygen Saturation - - Inhaled Oxygen Concentration - - Weight 80.1 kg (176 lb 8 oz) 02/10/2024 11:02 AM PRICING ASSOCIATE Height 163.6 cm (5' 4.41) 02/10/2024 11:[address] Body Mass Index 29.91 02/10/2024 11:02 AM PRICING ASSOCIATE Plan of Treatment Upcoming Encounters Date Type Department Care Team (Latest Contact Info) Description 02/18/2024 7:25 AM PRICING ASSOCIATE Hospital Encounter [facility] [address] [place] [address] Yoav Lewis MD [address] [facility] [place] [address] 02/18/2024 7:25 AM PRICING ASSOCIATE - 02/18/2024 9:35 AM PRICING ASSOCIATE Surgery [facility] [address] [place] [address] Yoav Lewis MD [address] [facility] [place] [address] ANKLE ARTHROSCOPY WITH DEBRIDEMENT; BROSTROM LIGAMENT REPAIR 02/18/2024 7:40 AM PRICING ASSOCIATE Appointment [facility] [address] [facility]iology [address] [place] [phone] Yoav Lewis MD [address] [facility] [place] [address] 03/07/2024 8:00 AM PRICING ASSOCIATE Appointment [facility] [address] [place] [phone] Yoav Lewis MD [address] [facility] [place] [address] 04/01/2024 10:40 AM PRICING ASSOCIATE Appointment [facility] [address] [place] [address] Yoav Lewis MD [address] [facility] [place] [address] Scheduled Procedures Name Priority Associated Diagnoses Date/Ti me ARTHROSCOPY ANKLE Right ankle instability 02/18/2024 7:25 AM PRICING ASSOCIATE BROSTROM PROCEDURE Right ankle instability 02/18/2024 7:25 AM PRICING ASSOCIATE Health Maintenance Due Date Last Done Comments Mammogram 1983 HepB (1) 2002 Adult Preventive Visit 12/22/2025 , 12/08/2022, 11/04/2021 Cervical Cancer Screening 08/19/2026 08/19/2021 (Com pleted) Diabetes Screening- (based on age and BMI) 12/22/2026 12/23/2023, 12/08/2022 DTaP/Tdap/Td (2 - Tdap) 03/28/2032 03/28/2022 Zoster/Shingles (1 of 2) 2033 HIV Screening (Preventive Services) Completed 03/30/2022 (Completed) Hep C Screening (Preventive Services) Completed 03/30/2022 (Completed) COVID-19 Vaccine Completed 12/23/2023, , 02/25/2021, Additional history exists Influenza Completed 12/23/2023, 12/29, 02/14/2022 HPV Vaccine Aged Out No longer eligi ble based on patient's age to complete this topic HepA Aged Out No longer eligi ble based on patient's age to complete this topic Hib Aged Out No longer eligi ble based on patient's age to complete this topic IPV (Polio) Aged Out No longer eligi ble based on patient's age to complete this topic RSV Aged Out No longer eligi ble based on patient's age to complete this topic MCV4 Aged Out No longer eligi ble based on patient's age to complete this topic Pneumococcal Aged Out No longer eligi ble based on patient's age to complete this topic Procedures Procedure Name Priority Date/Time Associated Diagnosis Comments XR FOOT 3+ VIEWS/ANKLE 2 VIEWS SERIES RT Routine 01/04/2024 11:26 AM CDT Right foot pain ALT (SGPT) Routine 12/23/2023 1:07 PM CDT Screening cholesterol level COMPLETE BLOOD COUNT-NO DIFF Routine 12/23/2023 1:07 PM CDT Well adult exam LIPID PANEL & DIRECT LDL (IF NEEDED) Routine 12/23/2023 1:07 PM CDT Screening cholesterol level BASIC METABOLIC PANEL Routine 12/23/2023 1:07 PM CDT Well adult exam T3, FREE Routine 12/23/2023 1:07 PM CDT Hypothyroidism (acquired) (HRC) FREE T4 Routine 12/23/2023 1:07 PM CDT Hypothyroidism (acquired) (HRC) TSH, SENSITIVE Routine 12/23/2023 1:07 PM CDT Hypothyroidism (acquired) (HRC) HGB A1C Routine 12/08/2022 9:31 AM CDT Screening for diabetes mellitus from Last 3 Months or Most Recently Relevant to Health Maintenance Results * XR Foot 3+ Views/Ankle 2 Views Series Rt (01/04/2024 11:26 AM CDT) Anatomical Region Laterality Modality Lower Extremity, Foot, Ankle Dig ital Radiography 01/04/2024 11:1 6 AM CDT Impressions 01/04/2024 1:40 PM CDT COMPARISON: 11/19/2021 FINDINGS: Small acute appearing bone fragment at the tip of the distal fibula, suspicious for an acute avulsion fracture. Adjacent small chronic calcification adjacent to the lateral talus, likely sequela of prior injury. No dislocation. Joint spaces within normal limits. Narrative Procedure Note Adam Smalls MD - 01/04/2024 IMPRESSION COMPARISON: 11/19/2021 FINDINGS: Small acute appearing bone fragment at the tip of the distalfibula, suspicious for an acute avulsion fracture. Adjacent small chroniccalcification adjacent to the lateral talus, likely sequela of priorinjury. No dislocation. Joint spaces within normal limits. Yoav Lewis MD RAD GD * (ABNORMAL) Lipid Panel and Direct LDL(If Needed) (12/23/2023 1:07 PM CDT) Cholesterol 232(H) 0 - 199 mg/dL 12/23/2023 5:06 PM CDT [facility] Triglyceride 82 <=149 mg/dL 12/23/2023 5:06 PM T [facility] HDL Cholesterol 84 >=40 mg/dL 5:06 PM T [facility] LDL, Calculated 132(H) <130 mg/dL 5:06 PM T [facility] Non HDL Chol, Calculated 148 <=159 mg/dL 12/23/2023 5:06 PM T [facility] Cholesterol/HDL Ratio 2.8 <=5.0 12/23/2023 5:06 PM T [facility] Hours Fasting 16.0 8 - 12 Hours 12/23/2023 5:06 PM T [facility] Blood Venipuncture / Unknown 12/23/2023 1:07 PM CDT 12/23/2023 1:07 PM CDT James Hughes MD LAB_1 Performing Organization Address City/[facility]/ZIP Co de Phone Number [facility] [address] [place] [address] * T3, Free (12/23/2023 1:07 PM CDT) T3, Free 2.8 1.7 - 3.7 pg/mL 12/23/2023 6:58 PM CDT [facility] Blood Venipuncture / Unknown 12/23/2023 1:07 PM CDT 12/23/2023 1:07 PM CDT Emmanuelle Candelaria MD LAB_1 [facility] [address] [place], [place] [id number] [place] [address] * TSH (12/23/2023 1:07 PM CDT) [facility] TSH, Sensitive 2.21 0.30 - 4.50 uIU/mL 12/23/2023 6:32 PM CDT [facility] Blood Venipuncture / Unknown 12/23/2023 1:07 PM CDT 12/23/2023 1:07 PM CDT Emmanuelle Candelaria MD LAB_1 [facility] [address] * Basic Metabolic Panel (12/23/2023 1:07 PM CDT) [facility] Sodium 140 136 - 145 mmol/L 12/23/2023 5:06 PM [facility] Potassium 3.9 3.5 - 5.1 mmol/L 12/23/2023 5:06 PM [facility] Chloride 105 98 - 109 mmol/L 12/23/2023 5:06 PM [facility] CO2 22 20 - 29 mmol/L 12/23/2023 5:06 PM [facility] Anion Gap 13 6 - 16 mmol/L 12/23/2023 5:06 PM [facility] Calcium 9.8 8.4 - 10.4 mg/dL 12/23/2023 5:06 PM [facility] BUN 11 7 - 26 mg/dL 12/23/2023 5:06 PM [facility] Creatinine 0.80 0.55 - 1.02 mg/dL 12/23/2023 5:06 PM [facility] Glucose 79 70 - 100 mg/dL 12/23/2023 5:06 PM [facility] Comment:The given reference range is for the fasting state. Non-fasting reference range for glucose is 70 - 180 mg/dL. GFR, Estimated >60 >60 mL/min/1.7 3m2 12/23/2023 5:06 PM [facility] Hours Fasting 16.0 8 - 12 Hours 12/23/2023 5:06 PM T [facility] Blood Venipuncture / Unknown 12/23/2023 1:07 PM CDT 12/23/2023 1:07 PM CDT James Hughes MD LAB_1 Performing Organization Address [facility]/ZIP Co de Phone Number [facility] [address] [place] [address] * Complete Blood Count-No Diff (12/23/2023 1:07 PM CDT) [facility] WBC 5.9 3.5 - 10.5 x10(9)/L 12/23/2023 1:11 PM T [facility] RBC 4.36 3.90 - 5.03 x10(12)/L 12/23/2023 1:11 PM [facility] Hemoglobin 14.0 12.0 - 15.5 g/dL 12/23/2023 1:11 PM [facility] HCT 41.3 34.9 - 44.5 % 12/23/2023 1:11 PM [facility] MCV 94.7 80.0 - 100.0 fL 12/23/2023 1:11 PM [facility] MCH 32.1 27.6 - 33.3 pg 12/23/2023 1:11 PM [facility] MCHC 33.9 31.5 - 35.2 g/dL 12/23/2023 1:11 PM [facility] RDW 12.0 11.9 - 15.5 % 12/23/2023 1:11 PM [facility] Platelets 279 150 - 450 x10(9)/L 12/23/2023 1:11 PM [facility] Automated NRBC 0 <=0 /100 WBC 12/23/2023 1:11 PM [facility] Blood Venipuncture / Unknown 12/23/2023 1:07 PM CDT 12/23/2023 1:07 PM CDT James Hughes MD LAB_1 Performing Organization Address City/[facility]/ZIP Co de Phone Number [facility] [address] [place] [phone] * Free T4 (12/23/2023 1:07 PM CDT) [facility] T4, Free 1.2 0.7 - 1.5 ng/dL 12/23/2023 6:56 PM CDT [facility] Blood Venipuncture / Unknown 12/23/2023 1:07 PM CDT 12/23/2023 1:07 PM CDT Emmanuelle Candelaria MD LAB_1 [facility] [address] [place] [address] * ALT (SGPT) (12/23/2023 1:07 PM CDT) [facility] ALT (SGPT) 19 <=55 U/L 12/23/2023 5:06 PM CDT [facility] Blood Venipuncture / Unknown 12/23/2023 1:07 PM CDT 12/23/2023 1:07 PM CDT James Hughes MD LAB_1 Performing Organization Address [facility]/ZIP Co de Phone Number [facility] [address] [place] [phone] * Hgb A1C (12/08/2022 9:31 AM CDT) [facility] Hemoglobin A1C 5.4 <=5.6 % 12/08/2022 8:23 PM CDT [facility] Estimated Average Glucose (Calc) 108 < 117 mg/dL 12/08/2022 8:23 PM T [facility] Comment:Estimated average gl ucose (eAG) converts A1c into glucose units (mg/dL) and estimates average glucose over the past approximately 3 months. The eAG reference interval (<117 mg/dL) corresponds to an A1c of <5.7%. Blood Venipuncture / Unknown 12/08/2022 9:31 AM CDT 12/08/2022 9:31 AM CDT James Hughes MD LAB_1 [facility] [address] [address], [facility] [phone] from Last 3 Months or Most Recently Relevant to Health Maintenance Care Teams Hat Finisher Relationship Specialty [place] [address] [place] [address] PCP - General Family Practice 11/04/21
--- OUTSIDE RECORDS SUMMARY | 2024-02-17 10:07 | XMS_ITS | Encounter Summary ---
Author Organization [facility] Address [address] [address] Care Team Providers Care Serials Librarian Name Role Phone James Hughes MD Primary Care Provider +1- [phone] Reason for Referral * Procedure/Equipment (Routine) - Incomplete Specialty Diagnoses / Procedures Referred By Contac t Referred To Contact Diagnoses Right ankle instability Procedures Case Request OR - Orthopedic Surgery: ANKLE ARTHROSCOPY WITH DEBRIDEMENT; BROSTROM LIGAMENT REPAIR Yoav Rae MD [address] [place] [address] Referral ID Status Reason Start Date Expiration Date V isits Requested Visits Authorized [id number] Incomplete 01/04/2024 04/04/2025 1 1 * Procedure/Equipment (Routine) - Incomplete Specialty Diagnoses / Procedures Referred By Contac t Referred To Contact Diagnoses Right foot pain Procedures XR Foot 3+ Views/Ankle 2 Views Series Rt Yoav Rae MD [address] [place] [address] Referral ID Status Reason Start Date Expiration Date V isits Requested Visits Authorized [id number] Incomplete 01/04/2024 04/04/2025 1 1 Reason for Visit * Reason Comments CONSULT Right ankle pain * Consult/Transfer Care (Routine) - Closed Specialty Diagnoses / Procedures Referred By Contac t Referred To Contact Orthopedics Diagnoses [place] [address] [place] [address] [facility] [address] [place] [address] Referral ID Status Reason Start Date Expiration Date Visits Re quested Visits Authorized [id number] Closed 12/23/2023 03/23/2025 1 1 Encounter Details Date Type Department Care Team (Late st Contact Info) Description 01/04/2024 11:20 AM CDT Office Visit [facility] [address] [place] [address] Yoav Rae MD [address] [place] [address] Right ankle instability (Primary Dx) Social History Tobacco Use Types Packs/Day Years [...] any time in the past 12 m [facility], were you homeless or living in a fci (including now)? No 12/23/2023 Financial Resource Strain [...] on file documented as of this encounter Patient Instructions * Patient Instructions* Joss Prater, OA - 01/04/2024 11:20 AM CDT Thank you for choosing [facility] for your health care visit today. Dr. Yoav Rae MD Orthopaedic Surgeon/Foot & Ankle Specialist Surgery [phone] Yudith [employer] Conveyor Operator (FMLA, Disability Paperwork) Medication Requests: Prescriptions are not filled on weekends or on weekdays after 3:00 PM. Advanced Imaging Scheduling: To schedule advanced imaging including MRI's, CT Scans, Ultrasounds and Fluoroscopic guided injections at a [facility] location please call [phone]. Medication Requests: Prescriptions are not filled on weekends or on weekdays after 3:00 PM. For all medication refills: Request a refill using MyChart or contact your pharmacy. [facility] [employer] [address] [place] [address] (Phone) Email: [email or web address] What is Know Your Cost? Know Your Cost is a service for patients and patient/members to call and receive personalized cost information and estimates across our care group. The phone number is (COST) Thursday - Thursday 8 AM to 5 PM Release of Information: Radiology/Imaging Health Information Management [id number] [place] [address] [place] [address] (Phone) [phone] (Phone) [employer] Lateral Ankle Ligament Stabilization (Modified Brostrom Procedure) NO WEIGHT ON THE FOOT FOR AT LEAST 4 WEEKS AFTER SURGERY Surgery: Nonweightbearing in splint Most the time is spent at home resting Ice behind the knee, elevation to manage post-operative edema (swelling causes pain that typically does not respond to standard pain medication) Blood thinning medication to reduce blood clot risk following surgery (Will either be Asprin, Xarelto, Eliquis or Lovenox) Narcotic pain medication (Oxycodone) should be reserved for breakthrough pain. Acetaminophen (e.g. Tylenol) 500mg every 6 hours and/or ibuprofen 600mg every 6 hours. Do not take over 4,000mg of acetaminophen per day. 2 week post-op visit: Splint and suture removal Will go into a CAM boot - work on gentle ankle sfjqk-jr-iwhffx (ROM) (up and down only) Remain non-weight bearing for 4 weeks from surgery CAM boot should be on for sleeping Discuss plans for PT (should make PT appointment for after 4 week visit) 4 week post-op visit: X-rays (weight-bearing) Begin PT Limit active ROM (AROM)/ Active Assist ROM (AAROM)/ Passive ROM (PROM) into eversion to 10?? in safe controlled manner No inversion AROM/AAROM/PROM Gentle and controlled AROM/AAROM/PROM into plantarflexion Progress from partial weight to full weightbearing in walking boot by 6 weeks after surgery then progress out of boot into ASO brace over 2 weeks (by 8-10 weeks after surgery) Driving Left foot: beginning now Right foot: When fully weight-bearing in boot (roughly 8 weeks after surgery) Flying: When fully weight-bearing in boot (roughly 8 weeks after surgery) 10 week post-op visit: Continue PT: Full active ROM in weight bearing and non-weightbearing positions 5/5 (full strength) peroneal strength in neutral and plantarflexed position Will hopefully be transitioned to an ASO brace and regular shoe at this time advance to non-impact activities as tolerated (walking, stationary bike, elliptical) No jumping, hopping or impact sports 4-6 month post-op visit: Advance to all activities as tolerated - will assess need for return to sport/activity documented in this encounter Progress Notes * Yoav Rae MD - 01/04/2024 11:20 AM CDTAddended by: YOAV RAE on: 01/04/2024 11:44 AM Modules accepted: Orders * Yoav Rae MD - 01/04/2024 11:20 AM CDT HISTORY AND PHYSICAL DATE OF SERVICE: 01/04/24 CC: Chief Complaint Patient presents with CONSULT Right ankle pain History of Present Illness: Nasra Roper is a 38 y.o. female who presents to clinic today for an evaluation of their foot and ankle. 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 States that she was rolled her ankle numerous times in the past. Pain is localized to the lateral aspect of the ankle. The most recent sprain was for the recent. Thinks about her ankle daily and has changed some of her activities secondary to ankle instability. no history of DVT or blood clot nonsmoker nondiabetic no family history of anesthesia related complications. Patient denies any personal history of bleeding disorders, clotting disorders, or adverse reactionsto anesthesia. PAST MEDICAL HISTORY: No past medical history on file. PAST SURGICAL HISTORY: No past surgical history on file. MEDICATIONS: Outpatient Medications Prior to Visit Medication Sig Dispense Refill levothyroxine (SYNTHROID) 88 MCG tablet Take 1 tablet daily 1 hour before or 2 hours after a meal; add 1/2 tablet every Thursday to usual dose. 94 Tablet 3 Vit-Fe Fumarate-FA (/FOLIC ACID) Take 1 Tablet by mouth daily. No facility-administered medications prior to visit. ALLERGIES: Allergies Allergen Reactions Sulfa Antibiotics Gastrointestinal Vomiting SOCIAL HISTORY: Social History Socioeconomic History Marital status: Spouse name: Not on file Number of children: Not on file Years of education: Not on file Highest education level: Not on file Occupational History Not on file Tobacco Use Smoking status: Never Passive exposure: Never Smokeless tobacco: Never Vaping Use Vaping status: Never Used Substance and Sexual Activity Alcohol use: Yes Alcohol/week: 0.0 - 1.0 standard drinks of alcohol Types: 2 Glasses of wine per week Drug use: Never Sexual activity: Yes Partners: Male control/protection: Condom Other Topics Concern Not on file Social History Narrative Not on file Social Determinants of Health Financial Resource Strain: Not At Risk (12/07/2022) Financial Resource Strain Difficulty of Paying Living Expenses: No Food Insecurity: No Food Insecurity (12/23/2023) Hunger Vital Sign Worried About Running Out of Food in the Last Year: Never true Ran Out of Food in the Last Year: Never true Transportation Needs: No Transportation Needs (12/23/2023) PRAPARE - Transportation Lack of Transportation (Medical): No Lack of Transportation (Non-Medical): No Physical Activity: Not on file Stress: Not on file Social Connections: Not on file Intimate Partner Violence: Not on file Housing Stability: Low Risk (12/23/2023) Housing Stability Vital Sign Unable to Pay for Housing in the Last Year: No Number of Times Moved in the Last Year: 0 Homeless in the Last Year: No FAMILY HISTORY: No family history on file. REVIEW OF SYSTEMS: 12 point system was completed on the intake form. The form is reviewed by me, signed and in the chart. PHYSICAL EXAM: On physical examination the patient appears the stated age, is in no acute distress There is appropriate and non-labored breathing There were no vitals taken for this visit. Estimated body mass index is 29.01 kg/m?? as calculated from the following: Height as of 12/23/23: 1.64 m (5' 4.57). Weight as of 12/23/23: 78 kg (172 lb). - Patient stands with hindfoot neutral - Gastroc contracture no - no swelling. no erythema. no ecchymosis. no breaks in the skin - Tenderness to palpitation over distal fibula - No subluxation of peroneal tendons - Motor: Fires EHL / FHL. Ankle dorsiflexion / planar flexion. Inversion / eversion - Sensation: intact in tibial, sural, saphenous, deep peroneal and superficial peroneal - Vascular: palpable dorsalis peds and posterior tibial artery - Anterior drawer and varus stress instability IMAGING: XR 3 views of the right ankle and foot on 01/03 and independently reviewed by me today: No fractures or dislocation seen IMPRESSION: Nasra Roper is a 38 y.o. female with the followin. Right ankle instability PLAN: - We discussed the physical and imaging findings with the patient and how this relates the patient's symptomology. Discussed with the patient that she would do well with an ankle stabilizing the procedure. We would be nonweightbearing for 2 weeks. - I went over the pros and cons of surgical versus nonoperative treatment options with the patient.I have recommended surgical management for this patient at the current time. Specifically, I am recommending right ankle arthroscopy and debridement, Brostrom ligament repair - The risks, benefits and alternatives to surgical intervention were discussed at length with the patient. Specific risks discussed included: infection, wound breakdown, numbness and damage to nerves, tendon, muscle, arteries or other blood vessels. The possibility of persistent pain and discomfortwere also mentioned in conversation with the patient. Medical complications related to the patient's general medical health including deep vein thrombosis, pulmonary embolus and other complications from anesthesia were discussed as well. The patient was told that we will take steps to minimize these risks by using sterile technique, antibiotics and DVT prophylaxis when appropriate and following the patient postoperatively in the clinic setting to monitor progress. The benefits of surgery were discussed with the patient including the potential to improve the current clinical condition through operative intervention. Alternatives to surgical intervention include continued conservative management which may yield less than optimal results for this particular patient. All questions were answered to the satisfaction of the patient. - Follow-up: For surgery Patient verbalized understanding of above mentioned plan and is amenable. All questions were answered in detail. Patient verbalized understanding that they should return sooner or call if there are any questions or concerns. This note contains medical terminology which is meant for communication between health care physicians and providers. Please note that vocabulary/phrasing/abbreviations may not carry the same definitions as they would in normal conversational speech. Additionally voice recognition software was usedto generate this note. As a result, wrong word or 'chlsu-m-tquo' substitutions may have occurred due to the inherent limitations of voice recognition software. There may be errors in the script that have gone undetected. Please consider this when interpreting information found in this chart. Yoav Rae MD Orthopedic, Foot and Ankle Surgery documented in this encounter Plan of Treatment Upcoming Encounters Date Type Department Care Team (Latest Contact Info) Description 02/18/2024 7:25 AM MORTGAGE LOAN FUNDER Hospital Encounter [facility] [address] [place] [phone] Yoav Rae MD [address] [place] [address] 02/18/2024 7:25 AM MORTGAGE LOAN FUNDER - 02/18/2024 9:35 AM MORTGAGE LOAN FUNDER Surgery [facility] [address] [place] [phone] Yoav Rae MD [address] [facility] [address] [place] [id number] ANKLE ARTHROSCOPY WITH DEBRIDEMENT; BROSTROM LIGAMENT REPAIR 02/18/2024 7:40 AM MORTGAGE LOAN FUNDER Appointment [facility] [address] [facility] [address] [place] [phone] Yoav Rae MD [address] [place] [address] [place] [address] 03/07/2024 8:00 AM MORTGAGE LOAN FUNDER Appointment [facility] [address] [place] [phone] Yoav Rae MD [address] [place] [address] 04/01/2024 10:40 AM MORTGAGE LOAN FUNDER Appointment [facility] [address] [place] [phone] Yoav Rae MD [address] [place] [address] Scheduled Procedures Name Priority Associated Diagnoses Date/Ti me ARTHROSCOPY ANKLE Right ankle instability 02/18/2024 7:25 AM MORTGAGE LOAN FUNDER BROSTROM PROCEDURE Right ankle instability 02/18/2024 7:25 AM MORTGAGE LOAN FUNDER documented as of this encounter Results * XR Foot 3+ Views/Ankle 2 [...] dislocation. Joint spaces within normal limits. Yoav Rae MD RAD GD documented in this encounter Visit Diagnoses Diagnosis Right ankle instability- Primary Other joint derangement, not elsewhere classified, ankle and foot Right foot pain Pain in limb Right ankle instability- Primary Other joint derangement, not elsewhere classified, ankle and foot Right ankle instability Other joint derangement, not elsewhere classified, ankle and foot documented in this encounter Care Teams Serials Librarian Relationship Specialty [place] [address] [place] [address] PCP - General Family Practice 11/04/21 documented as of this encounter
--- OUTSIDE RECORDS SUMMARY | 2024-02-17 10:07 | XMS_ITS | Encounter Summary ---
Author Organization [facility] Address [address] [place] [address] Care Team Providers Care Sand Hauler Name Role Phone James Hughes MD Primary Care Provider +1- [phone] Reason for Visit * Reason Comments Surgery, To Schedule Encounter Details Date Type Department Care Team (Late st Contact Info) Description 01/05/2024 Telephone [facility] [address] [place] [address] Yoav Lewis MD [address] [place] [address] Surgery, To Schedule Social History Tobacco Use Types Packs/Day Years [...] any time in the past 12 m onths, were you homeless or living in a half-way (including now)? No 12/23/2023 Financial Resource Strain [...] on file documented as of this encounter Nursing Notes * Yudith Parker - 01/12/2024 12:10 PM CDT Surgery and appts scheduled, packet mailed. DOS 02/18/24 Right ankle scope debridement Brostrom ligament repair Thank you CD * Yudith Parker - 01/05/2024 10:51 AM CDT I spoke with Nasra - she will call us back to schedule surgery when she is ready Thank you CD documented in this encounter Plan of Treatment Upcoming Encounters Date Type Department Care Team (Latest Contact Info) Description 02/18/2024 7:25 AM TRAVEL SPECIALIST Hospital Encounter [facility] [address] [place] [address] Yoav Lewis MD [address] [place] [address] 02/18/2024 7:25 AM TRAVEL SPECIALIST - 02/18/2024 9:35 AM TRAVEL SPECIALIST Surgery [facility] [address] [place] [phone] Yoav Lewis MD [address] [place] [address] ANKLE ARTHROSCOPY WITH DEBRIDEMENT; BROSTROM LIGAMENT REPAIR 02/18/2024 7:40 AM TRAVEL SPECIALIST Appointment [facility] [address] [address] [address] [place] [phone] Yoav Lewis MD [address] [place] [address] 03/07/2024 8:00 AM TRAVEL SPECIALIST Appointment [facility] [address] [place] [phone] Yoav Lewis MD [address] [place] [address] 04/01/2024 10:40 AM TRAVEL SPECIALIST Appointment [facility] [address] [place] [phone] Yoav Lewis MD [address] [place] [address] Scheduled Procedures Name Priority Associated Diagnoses Date/Ti me ARTHROSCOPY ANKLE Right ankle instability 02/18/2024 7:25 AM TRAVEL SPECIALIST BROSTROM PROCEDURE Right ankle instability 02/18/2024 7:25 AM TRAVEL SPECIALIST documented as of this encounter Visit Diagnoses Not on filedocumented in this encounter Care Teams Sand Hauler Relationship Specialty [place] [address] [place] [address] PCP - General Family Practice 11/04/21 documented as of this encounter
--- OUTSIDE RECORDS SUMMARY | 2024-02-17 10:07 | XMS_ITS | Continuity of Care Document ---
Author Name [facility] Organization [facility] Care Team Providers Care Corn Chip Maker Name Role Phone [facility] Unavailable Unavailable Allergies, Adverse Reactions, Alerts Combined list of allergies from Department of Defense and Veterans Affairs facilities. It does not include entries that were removed or entered in error. Substance Category Reaction Severity Reaction type Status Date Reported Comments Source [facility] Propensity to adverse reactions to drug (finding) Nausea and vomiting active 3 [facility]
--- OUTSIDE RECORDS SUMMARY | 2024-02-17 10:07 | XMS_ITS | Encounter Summary ---
Author Organization [facility] Address [address], [place] [address] Care Team Providers Care House Shorer Name Role Phone James Hughes MD Primary Care Provider +1- [phone] Reason for Visit * Procedure/Equipment (Routine) - Incomplete Specialty Diagnoses / Procedures Referred By Contac t Referred To Contact Diagnoses Right foot pain Procedures XR Foot 3+ Views/Ankle 2 Views Series Rt Yoav Lewis MD [address] [facility] [place] [address] Referral ID Status Reason Start Date Expiration Date V isits Requested Visits Authorized [id number] Incomplete 01/04/2024 04/04/2025 1 1 Encounter Details Date Type Department Care Team (Late st Contact Info) Description 01/04/2024 11:25 AM CDT Ancillary Procedure [facility] [address] [address] [address] [place] [phone] Yoav Lewis MD [address] [facility] [place] [address] Right foot pain Social History Tobacco Use Types Packs/Day Years [...] any time in the past 12 m [facility], were you homeless or living in a longterm (including now)? No 12/23/2023 Financial Resource Strain [...] on file documented as of this encounter Plan of Treatment Upcoming Encounters Date Type Department Care Team (Latest Contact Info) Description 02/18/2024 7:25 AM DEPOT AGENT Hospital Encounter [facility] [address] [place] [address] Yoav Lewis MD [address] [facility] [place] [address] 02/18/2024 7:25 AM DEPOT AGENT - 02/18/2024 9:35 AM DEPOT AGENT Surgery [facility] [address] [place] [phone] Yoav Lewis MD [address] [facility] [address] [place] [address] ANKLE ARTHROSCOPY WITH DEBRIDEMENT; BROSTROM LIGAMENT REPAIR 02/18/2024 7:40 AM DEPOT AGENT Appointment [facility] [address] [address] [address] [place] [phone] Yoav Lewis MD [address] [facility] [address] [place] [id number] 03/07/2024 8:00 AM DEPOT AGENT Appointment [facility] [address] [place] [phone] Yoav Lewis MD [address] [facility] [address] [place] [address] 04/01/2024 10:40 AM DEPOT AGENT Appointment [facility] [address] [place] [phone] Yoav Lewis MD [address] [facility] [address] [place], [place] [address] Scheduled Procedures Name Priority Associated Diagnoses Date/Ti me ARTHROSCOPY ANKLE Right ankle instability 02/18/2024 7:25 AM DEPOT AGENT BROSTROM PROCEDURE Right ankle instability 02/18/2024 7:25 AM DEPOT AGENT documented as of this encounter Procedures Procedure Name Priority Date/Time Associated Diagnosis Comments XR FOOT 3+ VIEWS/ANKLE 2 VIEWS SERIES RT Routine 01/04/2024 11:26 AM CDT Right foot pain documented in this encounter Results * XR Foot 3+ [...] normal limits. Yoav Lewis MD RAD GD documented in this encounter Visit Diagnoses Diagnosis Right foot pain Pain in limb Right ankle instability- Primary Other joint derangement, not elsewhere classified, ankle and foot Right ankle instability Other joint derangement, not elsewhere classified, ankle and foot documented in this encounter Care Teams House Shorer Relationship Specialty [place] [address] [address] [place] [address] PCP - General Family Practice 11/04/21 documented as of this encounter
--- OUTSIDE RECORDS SUMMARY | 2024-02-17 10:07 | XMS_ITS | Encounter Summary ---
Author Organization [facility] Address [address], [place] [address] Care Team Providers Care Transfer Car Operator Drier Name Role Phone James Hughes MD Primary Care Provider [phone]- [phone] Reason for Referral * Consult/Transfer Care (Routine) - Closed Specialty Diagnoses / Procedures Referred By Contac t Referred To Contact Orthopedics Diagnoses [place] of [place] [address] [place] [address] [facility] [address] [place] [address] Referral ID Status Reason Start Date Expiration Date Visits Re quested Visits Authorized [id number] Closed 12/23/2023 03/23/2025 1 1 Scheduling Instructions Your clinician has recommended an appointment with [facility] [place]. You can quickly make your appointment online at [email or web address]. You can also call [phone] for help scheduling your appointment. We suggest you call your health insurance company about your coverage and benefits for this appointment. Question Answer Appointment Urgency? Non-Urgent Reason for visit? recurrent ankle sprains, prophylactic surgery? The patient should be seen by: Orthopaedic Surgeon * Consult/Transfer Care (Routine) - Authorized Specialty Diagnoses / Procedures Referred By Contac t Referred To Contact Diagnoses [place] [address] [place] [address] Referral ID Status Reason Start Date Expiration Date V isits Requested Visits Authorized [id number] Authorized 12/23/2023 03/23/2025 1 1 Scheduling Instructions Your clinician has recommended an appointment with Indu Varela. You can quickly make your appointment online at [email or web address]. You can also call [phone] for help scheduling your appointment. We suggest you call your health insurance company about your coverage and benefits for this appointment. Question Answer Appointment Urgency? Non-Urgent Reason for Visit All other Derm conditions Reason for Visit * Reason Comments Annual Exam Encounter Details Date Type Department Care Team (Late st Contact Info) Description 12/23/2023 12:00 PM CDT Office Visit [address] [address] James Hughes MD [address] [place] [address] Well adult exam (Primary Dx); Hypothyroidism (acquired) (HRC); Screening cholesterol level; Hx of sprain of ankle Social History Tobacco Use Types Packs/Day Years [...] any time in the past 12 m [facility], were you homeless or living in a senior care (including now)? No 12/23/2023 Financial Resource Strain [...] Sign Reading Time Taken Comments Blood Pressure 113/86 12/23/2023 11:48 AM CDT Pulse 78 12/23/2023 11:48 AM CDT Temperature - - Respiratory Rate - - Oxygen Saturation - - Inhaled Oxygen Concentration - - Weight 78 kg (172 lb) 12/23/2023 11:48 AM CDT Height 164 cm (5' 4.57) 12/23/2023 11:48 AM CDT Body Mass Index 29.01 12/23/2023 11:48 AM CDT documented in this encounter Progress Notes * James Hughes MD - 12/23/2023 12:00 PM CDT PREVENTIVE FEMALE VISIT Subjective Nasra Roper is a 38 y.o. female who presents for a routine preventive physical exam. Patient concerns: 1. Hypothyroidism - taking synthroid 88 mcg daily. No symptoms of hypo or hyperthyroidism. 2. Hx of sprained ankles - has occurred multiple times. She is interested in meeting with Ortho. OBGYN History: /para: No obstetric history on file. Last Pap smear: 08/19/21. No history of abnormal pap smears. No LMP recorded. (Menstrual status: ). Preventive Health: Diet: varied Exercise: active Substance Abuse: no Social History Social History Narrative Not on file Health Maintenance: Immunizations: COVID: today Influenza: today Tetanus: no HPV series: no Shingles: no Pneumococcal vaccine(s): no Lipid screening: today Diabetes screening: today Cervical cancer screening: UTD Gonorrhea/chlamydia screening: no HIV screening: no Hepatitis C screening: no Breast cancer screening: declines Colorectal cancer screening: no Osteoporosis screen/DEXA: no Lung cancer screening: no Objective Filed Vitals: 12/23/23 1148 BP: 113/86 Pulse: 78 Weight: 172 lb (78 kg) Height: 5' 4.57 (1.64 m) Estimated body mass index is 29.01 kg/m?? as calculated from the following: Height as of this encounter: 5' 4.57 (1.64 m). Weight as of this encounter: 172 lb (78 kg). General: Alert and conversational, pleasant, in no acute distress HEENT: Head is atraumatic, normocephalic. Eyes are clear without conjunctival erythema or injection. PERRLA. EOMI. Nose is clear without drainage. Posterior pharynx is clear without erythema or exudate. Mucous membranes moist. Dentition normal. Neck: Soft, supple, full ROM. No thyromegaly. No lymphadenopathy. Heart: RRR without click, murmur, rub, or gallop. Lungs: CTAB without rales, rhonchi, or wheeze. Abdomen: Soft, non-tender, no masses or organomegaly, +BS in all four quadrants. Skin: Clear without rash or suspicious lesions. Extremities: Grossly normal, atraumatic, no cyanosis or edema. Neuro: CN II-XII grossly intact. Psych: Appropriate mood and affect. PHQ2 was administered today with a total score of 0. See flowsheet for details. Assessment/Plan 1. Well adult exam - Basic Metabolic Panel; Future - Complete Blood Count-No Diff; Future - Dermatology Consult-Adult/Peds 2. Hypothyroidism (acquired) (HRC) - levothyroxine (SYNTHROID) 88 MCG tablet; Take 1 tablet daily 1 hour before or 2 hours after a meal; add 1/2 tablet every Thursday to usual dose. Dispense: 94 Tablet; Refill: 3 3. Screening cholesterol level - Lipid Panel and Direct LDL(If Needed); Future - ALT (SGPT); Future 4. Hx of sprain of ankle - Orthopaedic Consult Adult/Peds Patient requesting referral for history of frequent sprain of ankle, no acute findings today. Pap smear: not done Counseled on the following: Healthy diet Regular physical activity Regular brushing, flossing, dental care Tobacco, alcohol, drug use Preventive visit in 1 year, sooner as needed for any concerns. [facility] documented in this encounter Plan of Treatment Upcoming Encounters Date Type Department Care Team (Latest Contact Info) Description 02/18/2024 7:25 AM EXTRACTION SUPERVISOR Hospital Encounter [facility] [address] [place] [phone] Yoav Lewis MD [address] [place] [address] [address] [place] [id number] 02/18/2024 7:25 AM EXTRACTION SUPERVISOR - 02/18/2024 9:35 AM EXTRACTION SUPERVISOR Surgery [facility] [address] [place] [address] Yoav Lewis MD [address] [place] [address] [place] [address] ANKLE ARTHROSCOPY WITH DEBRIDEMENT; BROSTROM LIGAMENT REPAIR 02/18/2024 7:40 AM EXTRACTION SUPERVISOR Appointment Indu Ludwig [place] [address] Rad[facility] [address] [place] [address] Yoav Lewis MD [address] [place] [address] [place] [id number] 03/07/2024 8:00 AM EXTRACTION SUPERVISOR Appointment [facility] [place] [facility] [address] [place] [address] Yoav Lewis MD [address] [facility] [place] [address] 04/01/2024 10:40 AM EXTRACTION SUPERVISOR Appointment [facility] [place] [facility] [address] [place] [address] Yoav Lewis MD [address] [facility] [place] [address] Scheduled Procedures Name Priority Associated Diagnoses Date/Ti me ARTHROSCOPY ANKLE Right ankle instability 02/18/2024 7:25 AM EXTRACTION SUPERVISOR BROSTROM PROCEDURE Right ankle instability 02/18/2024 7:25 AM EXTRACTION SUPERVISOR Scheduled Referrals Name Type Priority Associated Diagnoses Orde r Schedule Dermatology Consult-Adult/Peds Referral Routine Well adult exam Ordered: 12/23/2023 Orthopaedic Consult Adult/Peds Referral Routine Hx of sprain of ankle Ordered: 12/23/2023 documented as of this encounter Results * ALT (SGPT) (12/23/2023 1:07 PM CDT) Pathologist [facility] ALT (SGPT) 19 <=55 U/L 12/23/2023 5:06 PM CDT [facility] Blood Venipuncture / Unknown 12/23/2023 1:07 PM CDT 12/23/2023 1:07 PM CDT James Hughes MD LAB_1 [facility] [address] [place] [address] * Complete Blood Count-No Diff (12/23/2023 1:07 PM CDT) Pathologist [facility] WBC 5.9 3.5 - 10.5 x10(9)/L 12/23/2023 1:11 PM CDT [facility] RBC 4.36 3.90 - 5.03 x10(12)/L 12/23/2023 1:11 PM CDT [facility] Hemoglobin 14.0 12.0 - 15.5 g/dL 12/23/2023 1:11 PM CDT [facility] HCT 41.3 34.9 - 44.5 % 12/23/2023 1:11 PM T [facility] MCV 94.7 80.0 - 100.0 fL 12/23/2023 1:11 PM [facility] MCH 32.1 27.6 - 33.3 pg 12/23/2023 1:11 PM [facility] MCHC 33.9 31.5 - 35.2 g/dL 12/23/2023 1:11 PM [facility] RDW 12.0 11.9 - 15.5 % 12/23/2023 1:11 PM [facility] Platelets 279 150 - 450 x10(9)/L 12/23/2023 1:11 PM [facility] Automated NRBC 0 <=0 /100 WBC 12/23/2023 1:11 PM [facility] Blood Venipuncture / Unknown 12/23/2023 1:07 PM CDT 12/23/2023 1:07 PM CDT James Hughes MD LAB_1 [facility] [address] [place] [address], [facility] * (ABNORMAL) Lipid Panel and Direct LDL(If Needed) (12/23/2023 1:07 PM CDT) Cholesterol 232(H) 0 - 199 mg/dL 12/23/2023 5:06 PM [facility] Triglyceride 82 <=149 mg/dL 12/23/2023 5:06 PM [facility] HDL Cholesterol 84 >=40 mg/dL 5:06 PM [facility] LDL, Calculated 132(H) <130 mg/dL 5:06 PM [facility] Non HDL Chol, Calculated 148 <=159 mg/dL 12/23/2023 5:06 PM [facility] Cholesterol/HDL Ratio 2.8 <=5.0 12/23/2023 5:06 PM [facility] Hours Fasting 16.0 8 - 12 Hours 12/23/2023 5:06 PM [facility] Blood Venipuncture / Unknown 12/23/2023 1:07 PM CDT 12/23/2023 1:07 PM CDT James Hughes MD LAB_1 Performing Organization Address [facility]/ZIP Co de Phone Number [facility] [address] [place] [address] * Basic Metabolic Panel (12/23/2023 1:07 PM CDT) [facility] Sodium 140 136 - 145 mmol/L 12/23/2023 5:06 PM [facility] Potassium 3.9 3.5 - 5.1 mmol/L 12/23/2023 5:06 PM [facility] Chloride 105 98 - 109 mmol/L 12/23/2023 5:06 PM [facility] CO2 22 20 - 29 mmol/L 12/23/2023 5:06 PM [facility] Anion Gap 13 6 - 16 mmol/L 12/23/2023 5:06 PM [facility] Calcium 9.8 8.4 - 10.4 mg/dL 12/23/2023 5:06 PM [facility] BUN 11 7 - 26 mg/dL 12/23/2023 5:06 PM [facility] Creatinine 0.80 0.55 - 1.02 mg/dL 12/23/2023 5:06 PM [facility] Glucose 79 70 - 100 mg/dL 12/23/2023 5:06 PM [facility] Comment:The given reference range is for the fasting state. Non-fasting reference range for glucose is 70 - 180 mg/dL. GFR, Estimated >60 >60 mL/min/1.7 3m2 12/23/2023 5:06 PM [facility] Hours Fasting 16.0 8 - 12 Hours 12/23/2023 5:06 PM [facility] Blood Venipuncture / Unknown 12/23/2023 1:07 PM CDT 12/23/2023 1:07 PM CDT James Hughes MD LAB_1 [facility] [address] [place] [address] documented in this encounter Visit Diagnoses Diagnosis Well adult exam- Primary Routine general medical examination at a health care facility Hypothyroidism (acquired) (HRC) Unspecified hypothyroidism Screening cholesterol level Screening for lipoid disorders Hx of sprain of ankle Personal history of other musculoskeletal disorders Right ankle instability Other joint derangement, not elsewhere classified, ankle and foot documented in this encounter Care Teams Transfer Car Operator Drier Relationship Specialty [place] [address] [place] [address] PCP - General Family Practice 11/04/21 documented as of this encounter
--- OUTSIDE RECORDS SUMMARY | 2024-02-17 10:07 | XMS_ITS | Encounter Summary ---
Author Organization [facility] Address [address], [place] [address] Care Team Providers Care Spinner Frame Name Role Phone James Hughes MD Primary Care Provider +1- [phone] Encounter Details Date Type Department Care Team (Late st Contact Info) Description 12/23/2023 1:20 PM CDT Lab Visit [facility] [address] [place] [address] Hypothyroidism (acquired) (HRC); Well adult exam; Screening cholesterol level Social History Tobacco Use Types Packs/Day Years [...] money to buy more. Never true 12/23/19 Within the past 12 months, t he [...] any time in the past 12 m [facility], were you homeless or living in a halfway (including now)? No 12/23/2023 Financial Resource Strain [...] (Latest Contact Info) Description 02/18/2024 7:25 AM GENERAL SERVICE TECHNICIAN Hospital Encounter [facility] [address] [place] [address] Yoav Lewis MD [address] [facility] [address] [place] [address] 02/18/2024 7:25 AM GENERAL SERVICE TECHNICIAN - 02/18/2024 9:35 AM GENERAL SERVICE TECHNICIAN Surgery [facility] [address] [place] [address] Yoav Lewis MD [address] [facility] [place] [address] ANKLE ARTHROSCOPY WITH DEBRIDEMENT; BROSTROM LIGAMENT REPAIR 02/18/2024 7:40 AM GENERAL SERVICE TECHNICIAN Appointment [facility] Med[facility] [address] [facility] [address] [place] [address] Yoav Lewis MD [address] [facility] [place] [address] 03/07/2024 8:00 AM GENERAL SERVICE TECHNICIAN Appointment [facility] [address] [place] [phone] Yoav Lewis MD [address] [facility] [place] [address] 04/01/2024 10:40 AM GENERAL SERVICE TECHNICIAN Appointment [facility] [address] [place] [phone] Yoav Lewis MD [address] [facility] [place] [address] Scheduled Procedures Name Priority Associated Diagnoses Date/Ti me ARTHROSCOPY ANKLE Right ankle instability 02/18/2024 7:25 AM GENERAL SERVICE TECHNICIAN BROSTROM PROCEDURE Right ankle instability 02/18/2024 7:25 AM GENERAL SERVICE TECHNICIAN documented as of this encounter Procedures Procedure Name Priority Date/Time Associated Diagnosis Comments LIPID PANEL & DIRECT LDL (IF NEEDED) Routine 12/23/2023 1:07 PM CDT Screening cholesterol level T3, FREE Routine 12/23/2023 1:07 PM CDT Hypothyroidism (acquired) (HRC) TSH, SENSITIVE Routine 12/23/2023 1:07 PM CDT Hypothyroidism (acquired) (HRC) BASIC METABOLIC PANEL Routine 12/23/2023 1:07 PM CDT Well adult exam COMPLETE BLOOD COUNT-NO DIFF Routine 12/23/2023 1:07 PM CDT Well adult exam FREE T4 Routine 12/23/2023 1:07 PM CDT Hypothyroidism (acquired) (HRC) ALT (SGPT) Routine 12/23/2023 1:07 PM CDT Screening cholesterol level documented in this encounter Results * ALT (SGPT) (12/23/2023 1:07 PM CDT) Pathologist [facility] ALT (SGPT) 19 <=55 U/L 12/23/2023 5:06 PM T [facility] Blood Venipuncture / Unknown 12/23/2023 1:07 PM CDT 12/23/2023 1:07 PM CDT James Hughes MD LAB_1 [facility] [address] [place] [address] * Complete Blood Count-No Diff (12/23/2023 1:07 PM CDT) [facility] WBC 5.9 3.5 - 10.5 x10(9)/L 12/23/2023 1:11 PM [facility] RBC 4.36 3.90 - 5.03 x10(12)/L 12/23/2023 1:11 PM [facility] Hemoglobin 14.0 12.0 - 15.5 g/dL 12/23/2023 1:11 PM [facility] HCT 41.3 34.9 - 44.5 % 12/23/2023 1:11 PM [facility] MCV 94.7 80.0 - 100.0 fL 12/23/2023 1:11 PM [facility] MCH 32.1 27.6 - 33.3 pg 12/23/2023 1:11 PM [facility] MCHC 33.9 31.5 - 35.2 g/dL 12/23/2023 1:11 PM [facility] RDW 12.0 11.9 - 15.5 % 12/23/2023 1:11 PM [facility] Platelets 279 150 - 450 x10(9)/L 12/23/2023 1:11 PM [facility] Automated NRBC 0 <=0 /100 WBC 12/23/2023 1:11 PM [facility] Blood Venipuncture / Unknown 12/23/2023 1:07 PM CDT 12/23/2023 1:07 PM CDT James Hughes MD LAB_1 Performing Organization Address [facility]/State/ZIP Co de Phone Number [facility] [address] [place] [address] * (ABNORMAL) Lipid Panel and Direct LDL(If Needed) (12/23/2023 1:07 PM CDT) Cholesterol 232(H) 0 - 199 mg/dL 12/23/2023 5:06 PM T [facility] Triglyceride 82 <=149 mg/dL 12/23/2023 5:06 PM [facility] HDL Cholesterol 84 >=40 mg/dL 5:06 PM [facility] LDL, Calculated 132(H) <130 mg/dL 4 5:06 PM [facility] Non HDL Chol, Calculated 148 <=159 mg/dL 12/23/2023 5:06 PM [facility] Cholesterol/HDL Ratio 2.8 <=5.0 12/23/2023 5:06 PM [facility] Hours Fasting 16.0 8 - 12 Hours 12/23/2023 5:06 PM [facility] Blood Venipuncture / Unknown 12/23/2023 1:07 PM CDT 12/23/2023 1:07 PM CDT James Hughes MD LAB_1 Performing Organization Address [facility]/State/ZIP Co de Phone Number [facility] [address] [place] [address] * Basic Metabolic Panel (12/23/2023 1:07 PM CDT) Sodium 140 136 - 145 mmol/L 12/23/2023 5:06 PM [facility] Potassium 3.9 3.5 - 5.1 mmol/L 12/23/2023 5:06 PM [facility] Chloride 105 98 - 109 mmol/L 12/23/2023 5:06 PM [facility] CO2 22 20 - 29 mmol/L 12/23/2023 5:06 PM [facility] Anion Gap 13 6 - 16 mmol/L 12/23/2023 5:06 PM [facility] Calcium 9.8 8.4 - 10.4 mg/dL 12/23/2023 5:06 PM [facility] BUN 11 7 - 26 mg/dL 12/23/2023 5:06 PM [facility] Creatinine 0.80 0.55 - 1.02 mg/dL 12/23/2023 5:06 PM [facility] Glucose 79 70 - 100 mg/dL 12/23/2023 5:06 PM [facility] Comment:The given reference range is for the fasting state. Non-fasting reference range for glucose is 70 - 180 mg/dL. GFR, Estimated >60 >60 mL/min/1.7 3m2 12/23/2023 5:06 PM [facility] Hours Fasting 16.0 8 - 12 Hours 12/23/2023 5:06 PM [facility] Blood Venipuncture / Unknown 12/23/2023 1:07 PM CDT 12/23/2023 1:07 PM CDT James Hughes MD LAB_1 Performing Organization Address City/[facility]/ZIP Co de Phone Number [facility] [address] [place] [address] * T3, Free (12/23/2023 1:07 PM CDT) T3, Free 2.8 1.7 - 3.7 pg/mL 12/23/2023 6:58 PM CDT [facility] Blood Venipuncture / Unknown 12/23/2023 1:07 PM CDT 12/23/2023 1:07 PM CDT Emmanuelle Candelaria MD LAB_1 [facility] [address] * Free T4 (12/23/2023 1:07 PM CDT) T4, Free 1.2 0.7 - 1.5 ng/dL 12/23/2023 6:56 PM CDT [facility] Blood Venipuncture / Unknown 12/23/2023 1:07 PM CDT 12/23/2023 1:07 PM CDT Emmanuelle Candelaria MD LAB_1 Performing Organization Address [facility] de Phone Number [facility] [address] * TSH (12/23/2023 1:07 PM CDT) TSH, Sensitive 2.21 0.30 - 4.50 uIU/mL 12/23/2023 6:32 PM CDT [facility] Blood Venipuncture / Unknown 12/23/2023 1:07 PM CDT 12/23/2023 1:07 PM CDT Emmanuelle Candelaria MD LAB_1 Performing Organization Address [facility] de Phone Number [facility] [address] documented in this encounter Visit Diagnoses Diagnosis Hypothyroidism (acquired) (HRC) Unspecified hypothyroidism Well adult exam Routine general medical examination at a health care facility Screening cholesterol level Screening for lipoid disorders Right ankle instability Other joint derangement, not elsewhere classified, ankle and foot documented in this encounter Care Teams Spinner Frame Relationship Specialty [place] [address] [address] [place] [address] PCP - General Family Practice 11/04/21 documented as of this encounter
== END 2024-02-17 10:05 | disposition home or self-care (01) ==
PROVIDERS: Visit Provider Registered Nurse
DX: N91.1 Secondary amenorrhea (principal); E03.9 Hypothyroidism, unspecified
CPT/HCPCS: 82670; 83001; 84146; 84443